=== PATIENT | female | born 1980 | race Caucasian/White ===

== ENCOUNTER 2017-10-14 16:55 | Inpatient (IN) | payer OTHER ==
[2017-10-14 18:00] LABS: BASO # 0.1 K/uL (0.0-0.2); BASO % 0.3 % (0.0-2.0); EOS % 0.1 % (0.0-4.0); HEMOGLOBIN 16.8 g/dL (12.0-16.0); LYMPH # 1.9 K/uL (1.0-4.3); LYMPH % 8.5 % (20.0-40.0); MEAN CELL VOLUME 81.7 fl (81.0-99.0); MEAN CORPUSCULAR HEMOGLOBIN 27.8 pg (27.0-31.0); MEAN CORPUSCULAR HGB CONC 34.1 g/dL (33.0-37.0); MEAN PLATELET VOLUME 8.6 fl (7.2-11.7); MONO # 1.4 K/uL (0.0-0.8); MONO % 6.2 % (0.0-10.0); NEUT # 19.4 K/uL (1.8-7.0); NEUT % 84.9 % (50.0-75.0); PLATELET COUNT 476 K/uL (130-400); RBC 6.04 Mil/uL (3.80-5.20); RED CELL DISTRIBUTION WIDTH 14.2 % (11.5-14.5); WHITE BLOOD COUNT 22.8 K/uL (4.8-10.8)
[2017-10-14 18:05] LABS: ALB/GLOB RATIO 1.1 (1.0-2.1); ALBUMIN 3.1 g/dL (3.5-5.0); CALCIUM 8.3 mg/dL (8.4-10.2)
[2017-10-14 18:08] LABS: INR 1.1 (0.9-1.2); PARTIAL THROMBOPLASTIN TIME 29.9 Seconds (25.6-37.1)
--- NOTE | 2017-10-14 18:17 | ED PDOC ---
HPI: General Adult Time Seen by Provider: 10/14/17 17:13 Chief Complaint (Nursing): Abdominal Pain History Per: Patient Additional Complaint(s): Pt. states for the past 4 days she's had epigastric pain radiating to her chest causing SOB. Also reports feeling nauseous. States pain is worse after eating. States she was seen by David Nascimento yesterday and was found to be . She also had an Abd US which showed perihepatic ascites but no mention of . States today she began today the SOB which occurred when she bent forward and resolved when lying supine. Currently without any symptoms. Pt. states she is currently taking Lovenox 40mg and for IVF treatment. Denies fever , vaginal bleeding, vomiting, chest pain, palpitations, recent prolonged immobilization, hx of DVT or PE, previous abdominal surgeries, leg pain, pelvic pain. Past Medical History Reviewed: Historical Data, Nursing Documentation, Vital Signs Vital Signs: Last Vital Signs Temp 97.8 F 10/18/17 05:10 Pulse 81 10/18/17 05:10 Resp 20 10/18/17 05:10 BP 133/87 10/18/17 05:10 Pulse Ox 98 10/18/17 05:10 - Surgical History Surgical History: No Surg Hx - Family History Family History: States: No Known Family Hx - Home Medications Home Medications: Ambulatory Orders Medication Instructions Recorded Heparin [Heparin (RENAL)] 40 mg SQ DAILY 10/15/17 Levothyroxine [Synthroid] 50 mcg PO DAILY 10/15/17 Non Formulary Medication 2 mg PO DAILY 10/15/17 [Non-Formulary Medication] Progesterone, Micronized [Crinone] 80 mg TOP DAILY 10/15/17 Progesterone, Micronized 10 mg PO BID 10/15/17 [Progesterone] - Allergies Allergies/Adverse Reactions: Allergies Allergy/AdvReac Type Severity Reaction Status Date / Time No Known Allergies Allergy Verified 10/14/17 17:09 Review of Systems ROS Statement: Except As Marked, All Systems Reviewed And Found Negative Respiratory: Positive for: Shortness of Breath Gastrointestinal: Positive for: Nausea, Abdominal Pain Physical Exam - Physical Exam Appears: Positive for: Well, Non-toxic, No Acute Distress Skin: Positive for: Normal Color, Warm. Negative for: Rash Eye Exam: Positive for: Normal appearance. Negative for: Scleral icterus ENT: Positive for: Normal ENT Inspection, Pharynx Is Cardiovascular/Chest: Positive for: Regular Rate, Rhythm. Negative for: Tachycardia Respiratory: Positive for: Normal Breath Sounds. Negative for: Respiratory Distress Gastrointestinal/Abdominal: Positive for: Normal Exam, Soft, Tenderness ( epigastric and RUQ). Negative for: Distended, Asicites Back: Positive for: Normal Inspection. Negative for: L CVA Tenderness, R CVA Tenderness Extremity: Negative for: Calf Tenderness (b/l) Neurologic/Psych: Positive for: Alert, Oriented, Gait (steady, unassisted). Negative for: Aphasia, Facial Droop - Laboratory Results Result Diagrams: 10/18/17 04:20 10/18/17 04:20 Urine POC: Positive - ECG ECG: Positive for: Interpreted By Me ECG Rhythm: Positive for: Sinus Rhythm. Negative for: ST/T Changes Rate: 96 O2 Sat by Pulse Oximetry: 99 - Progress ED Course And Treament: Labs, duplex b/l lower extremity, abd US, pepcid 40mg IV ordered. Pt. placed on traffic monitor specialist. Urine specimen showed sp blood. Tranvaginal US ordered. Case d/w Dr. Martinez who agrees with care. [address] Martinez recommends CTA chest and holding off on ASA as EKG is normal at this time. 1931 Pt. states she had IVF in [place] 8 days ago. States her OBGYN is Dr. Mary Jane Almeida Call placed to Dr. Almeida. 1944 Case d/w Dr. Almeida who knows pt. but has not seen her for this . Agrees with plan of getting CTA chest and abd and states OBGYN admissions coordinator can be consulted if needed. Disposition - Clinical Impression Clinical Impression: Abdominal pain, Ovarian hyperstimulation syndrome, Elevated troponin - Patient ED Disposition Is Patient to be Admitted: Transfer of Care (Signed out to Mert PANIAGUA pending diagnostic results and final disposition.) - Disposition Disposition Time: 20:00 Condition: STABLE
[2017-10-14 18:20] LABS: TROPONIN I 0.288 ng/mL (0.00-0.120)
[2017-10-14 18:25] LABS: SQUAMOUS EPITHIAL 1 /hpf (0-5); URINE BACTERIA RARE (<OCC); URINE BILIRUBIN NEGATIVE (NEGATIVE); URINE BLOOD NEGATIVE (NEGATIVE); URINE CLARITY CLOUDY (Clear); URINE COLOR AMBER (YELLOW); URINE GLUCOSE (UA) NEG (Normal); URINE LEUKOCYTE ESTERASE NEG Leu/uL (Negative); URINE PROTEIN 30 mg/dL (NEGATIVE)
[2017-10-14] MEDS ORDERED: Iodixanol 320 MG/ML 100 ML BOTTLE IV ONE (18:43)
[2017-10-14] MEDS ORDERED: Sodium Chloride 0.9% 50 ML IV ONE (18:43)
[2017-10-14 19:29] LABS: BANDS 4 % (0-2); HYPOCHROMIC SLIGHT; LYMPHOCYTE 10 % (20-50); MICROCYTOSIS SLIGHT; MONOCYTE 5 % (0-10); NEUTROPHIL 81 % (42-75); PLATELET ESTIMATE NORMAL (NORMAL); TOTAL CELLS COUNTED 100
[2017-10-14] MEDS: Lactated Ringer's 1,000 ML IV SCH (20:42)
--- NOTE | 2017-10-14 22:19 | ED PDOC ---
- Laboratory Results Result Diagrams: 10/14/17 17:34 10/14/17 17:34 Urine POC: Positive - ECG O2 Sat by Pulse Oximetry: 99 Medical Decision Making Medical Decision Making: Case endorsed to me from HERVE Wayne at 1999 pending US. HERVE Wayne had discussed the case with patient's boatwright Dr. Oneyda Almeida and he agrees with current management and is comfortable with patient receiving CT if clinically warranted based on her symptoms. VS P 96 O2sat 99%RA. On re-evaluation, patient reports improvement of symptoms when she is laying down, reports of upper abdominal pain when standing and walking, as well as SOB when she stands and walks. She denies any chest pain or SOB at this time. She admits to having ovarian hyperstimulation treatment while in [place] for 10 days 3 weeks ago, she was told that ascities can develop, however this side effect was not fully discussed with her, although it was mentioned in her discharge papers. She states on 10/01/17 she had the retrieval and transfer of fertilized eggs, on 10/06/17 she returned from [place]. Her symptoms then started on 10/11/17 with mild upper abdominal pain, which became constant and gradually worsened with SOB when walking, but denied chest pain. On exam, patient remains AAOx3, she is smiling, in no acute painful or respiratory distress. Lungs clear to auscultation, cardiac RRR, abdomen soft, not distended, dull to percussion, + upper abdominal tenderness. Lab results reviewed with the patient : trop (+), wbc 22, creat 1.3, beta quant 71, coags wnl. US abd : FINDINGS: Liver: Normal appearance of the hepatic parenchyma. Normal hepatic contour. No evidence mass or fatty infiltration. There is hepatopetal portal venous flow. No intrahepatic bile duct dilation. Gallbladder: Normal gallbladder wall thickness of 3 mm. The gallbladder is normal in size. No gallstones, sludge, or pericholecystic fluid. Common bile duct: The common bile duct measures 7 mm in diameter. No evident stones. Pancreas: Not well-seen obscured by overlying bowel. Kidneys: There is a small amount of perihepatic and perisplenic fluid. The right kidney is normal in size and echotexture without stone or hydronephrosis measuring 10.1 cm in length. The left kidney is normal in size and echotexture, without stone or hydronephrosis, measuring 9.7 cm in length. Spleen: The spleen is normal in size and echotexture with length of 8.3 cm. Aorta: Normal as visualized. Inferior vena cava: Normal as visualized. Free fluid: Moderate fluid within the right lower quadrant. IMPRESSION: 1. Moderate to large abdominal ascites. While this is indeterminate in etiology , this could be related to the possibility of ovarian hyperstimulation syndrome suggested on the comparison pelvic ultrasound. Recommend correlation with clinical and laboratory parameters, to include beta hCG levels, especially if there is concern for ectopic . 2. Common bile duct is just above the upper limit of normal diameter. If there is concern for an obstructive process, consider followup imaging in the nonemergent setting. 3. No cholelithiasis or sonographic evidence of acute cholecystitis. Dictated and Authenticated by: Terrence Brantley DO 10/14/2017 8:48 PM Eastern Time ([place] & [place]) US TV : FINDINGS: Gestation: No intrauterine . Placenta/amniotic fluid: Not present. Uterus/cervix: The uterus measures 7.5 cm x 5.7 cm x 5.0 cm. The endometrium is homogeneous measuring 1.7 cm in thickness. No myometrial mass. Ovaries: The left ovary measures 5.8 cm x 4.2 cm x 4.2 cm, corresponding to a volume of 54.2 mL. Several small follicles are present within the left ovary. The right ovary measures 4.9 cm x 4.2 cm x 4.2 cm, corresponding to a volume of 45.9 mL. Multiple follicles are present within the right ovary. Normal color Doppler flow and spectral Doppler waveform within each ovary. No torsion. No evident mass. Free fluid: Moderate free fluid throughout the pelvis. IMPRESSION: 1. No intrauterine . Recommend close clinical surveillance and correlation with beta hCG levels. 2. Bilateral ovarian enlargement, with the ovaries containing multiple follicles. Moderate free fluid within the pelvis. This constellation of findings suggests the possibility of ovarian hyperstimulation syndrome. Dictated and Authenticated by: Terrence Brantley DO 10/14/2017 8:41 PM Eastern Time (US & [place]) 2100 US results d/w the radiologist Dr. Brantley, who confirms that the ascities is likely due to ovarian hyperstimulation syndrome given the clinical history. Radiologist states that the patient can even develop pleural effusion and pericardial effusion, he states that the portal vein is visualized with no clot. 2114 US results d/w Dr. Thomas, given that the patient on initial presentation was tachycardic and had recent travel, CT of chest ordered to rule out PE and also to evaluate the heart and lungs for any fluids. CT is medically necessary given the clinical scenario and the need to rule out PE. US results d/w the patient in great detail. Plan for CT d/w the patient, which she feels comfortable with and agrees to. Repeat trop and lactic acid ordered. CTA chest : FINDINGS: Pulmonary arteries: No filling defects within the central, segmental, or visualized subsegmental pulmonary arteries. Aorta: No acute findings. No thoracic aortic aneurysm. Lungs: No focal consolidation. No suspicious pulmonary nodule. Pleural space: No pleural effusion. No pneumothorax or pleural thickening. Heart: Normal cardiac chamber size. No pericardial effusion. No evidence of RV dysfunction. Bones/joints: The osseous structures are normal for age. No acute osseous abnormality. No dislocation. Soft tissues: Normal. Lymph nodes: Normal. No enlarged lymph nodes. Intraperitoneal space: There is a moderate to large amount of upper abdominal ascites. IMPRESSION: 1. No pulmonary embolism. 2. No pleural effusion or pericardial effusion. 2. No acute cardiopulmonary abnormality. 4. Moderate to large volume abdominal ascites, as seen on the comparison abdominal ultrasound. Dictated and Authenticated by: Terrence Brantley DO 10/14/2017 10:30 PM Eastern Time (US & [place]) CT A/P w/ IV contrast: FINDINGS: Lung bases: The visualized portions of the lung bases are normal. Liver: The liver is normal in appearance. Gallbladder and bile ducts: The gallbladder is normal. No calcified stones. No ductal dilation. Pancreas: The pancreas is normal. No ductal dilation. Spleen: The spleen is normal. Adrenals: The adrenal glands are normal. Kidneys and ureters: The kidneys are normal. Normal appearance of the imaged ureters. No hydronephrosis. Stomach and bowel: Normal appearance of the imaged volume large bowel. No bowel dilation. No mucosal thickening. Appendix: The appendix is not visualized and is likely below the imaged field-of -view. Intraperitoneal space: Moderate to large volume ascites. No free air. Bones/joints: Normal appearance of the osseous structures. No acute fracture. No dislocation. Soft tissues: Normal. Vasculature: The portal and hepatic veins appear patent. Patent splenic and superior mesenteric veins. Lymph nodes: Normal. No enlarged lymph nodes. IMPRESSION: 1. The portal, splenic, and imaged the superior mesenteric veins appear patent. 2. Moderate to large volume ascites as seen on comparison exams. 3. No other acute abdominal abnormality. Dictated and Authenticated by: Terrence Brantley DO 10/14/2017 11:02 PM Eastern Time (US & [place]) CT results d/w the patient. Based on history, exam and diagnostic results, plan will be for inpatient observation. Case d/w INFORMATION TECHNOLOGY SECURITY MANAGER David Nascimento, agrees to inpatient observation to [facility] for chest pain , SOB, elevated troponin. Request cardio consult with Dr. Oneyda Quezada and echo in the AM. Bridge orders, consult and echo ordered. Disposition Counseled Patient/Family Regarding: Studies Performed, Diagnosis - Clinical Impression Clinical Impression: Abdominal pain, Ovarian hyperstimulation syndrome, Elevated troponin - POA Present On Arrival: None - Disposition Disposition: Hospitalized as Observation Patient Disposition Time: 22:45 Condition: STABLE - PA / INFORMATION TECHNOLOGY SECURITY MANAGER / Resident Statement YULIA has reviewed & agrees with the documentation as recorded.
[2017-10-15] MEDS: Lactated Ringer's 1,000 ML IV SCH ×3 (00:22→10:11)
[2017-10-15 05:21] LABS: BASO # 0.1 K/uL (0.0-0.2); BASO % 0.4 % (0.0-2.0); EOS % 0.1 % (0.0-4.0); HEMOGLOBIN 16.5 g/dL (12.0-16.0); LYMPH # 3.3 K/uL (1.0-4.3); LYMPH % 16.3 % (20.0-40.0); MEAN CELL VOLUME 84.1 fl (81.0-99.0); MEAN CORPUSCULAR HEMOGLOBIN 27.7 pg (27.0-31.0); MEAN CORPUSCULAR HGB CONC 32.9 g/dL (33.0-37.0); MEAN PLATELET VOLUME 8.4 fl (7.2-11.7); MONO # 1.8 K/uL (0.0-0.8); MONO % 9.2 % (0.0-10.0); NEUT # 14.8 K/uL (1.8-7.0); RBC 5.97 Mil/uL (3.80-5.20); RED CELL DISTRIBUTION WIDTH 14.7 % (11.5-14.5)
[2017-10-15 07:30] LABS: ALB/GLOB RATIO 1.1 (1.0-2.1); ALBUMIN 2.8 g/dL (3.5-5.0); ALT/SGPT 42 U/L (9-52); AST/SGOT 30 U/L (14-36); BLOOD UREA NITROGEN 32 mg/dl (7-17); GFR AFRICAN-AMERICAN > 60; GFR NON-AFRICAN AMERICAN > 60
[2017-10-15 07:32] LABS: CK-MB 0.93 ng/mL (0.0-3.38)
--- NOTE | 2017-10-15 09:44 | CT ---
Date of service: 10/14/2017 PROCEDURE: CT Chest with contrast (Pulmonary Angiogram) HISTORY: SOB, elevated troponin COMPARISON: No prior chest CT available for comparison. Limited correlation is made with prior abdomen ultrasound examination 10/14/2017. TECHNIQUE: Axial computed tomography images were obtained of the chest in the pulmonary arterial phase of enhancement. Coronal and sagittal reformatted images were created and reviewed. Intravenous contrast dose: Visipaque 320, 90 cc. Radiation dose: Total exam DLP = 417.94 mGy-cm. This CT exam was performed using one or more of the following dose reduction techniques: Automated exposure control, adjustment of the mA and/or kV according to patient size, and/or use of iterative reconstruction technique. FINDINGS: PULMONARY ARTERIES: Unremarkable. No pulmonary embolism. AORTA: No acute findings. No thoracic aortic aneurysm. LUNGS: Unremarkable. No nodule, mass or pulmonary consolidation. PLEURAL SPACES: Trace bilateral pleural effusions identified. No pericardial effusion. HEART: Normal cardiac size. LYMPH NODES: No lymphadenopathy. BONES, CHEST WALL: Unremarkable. No fracture or destructive lesion OTHER FINDINGS: Upper abdominal ascites. IMPRESSION: 1. No CT evidence pulmonary embolus. 2. No infiltrate or significant lymphadenopathy. Trace bilateral pleural effusions are identified which are nonspecific. 3. Upper abdominal ascites appreciated. Please see separate subsequent abdomen pelvis CT examination 10/14/2017.
--- NOTE | 2017-10-15 10:12 | CT ---
Date of service: 10/14/2017 PROCEDURE: CT Abdomen with intravenous contrast HISTORY: attention portal vein COMPARISON: Upper abdomen sections from chest CT 10/14/2017. Abdomen ultrasound 10/16/2017 as well. TECHNIQUE: Axial images of the abdomen from lung bases to iliac crest following intravenous contrast administration. Coronal and sagittal reformats generated. Oral contrast was not administered as well as imaging through the pelvis as per referring physician request. The patient is and this examination was deemed medically necessary by the referring physician. Intravenous contrast Dose: No added contrast given. See chest CT Angio 10/14/2017. Radiation dose: Total exam DLP = 215.33 mGy-cm. This CT exam was performed using one or more of the following dose reduction techniques: Automated exposure control, adjustment of the mA and/or kV according to patient size, and/or use of iterative reconstruction technique. FINDINGS: LOWER THORAX: Trace bilateral pleural effusions are identified. LIVER: No hepatic mass or intrahepatic biliary dilatation is identified. Portal and hepatic venous enhancement is unremarkable. GALLBLADDER AND BILE DUCTS: Gallbladder is distended. No radiodense cholelithiasis is associated. Gallbladder wall thickness is upper limits normal at 2.5 mm and the pattern may reflect subtle hydropic changes related to ascites. Common bile duct appears to measure 5.1 mm. No choledocholithiasis grossly evident. PANCREAS: Unremarkable. No gross lesion or ductal dilatation. SPLEEN: Unremarkable. ADRENALS: Unremarkable. No mass. KIDNEYS AND URETERS: Unremarkable. No hydronephrosis. No solid mass. VASCULATURE: Unremarkable. No aortic aneurysm. BOWEL: The lack of oral contrast administration limits evaluation of the gastrointestinal tract. The gastric antrum is mildly distended by retained air and appears unremarkable. The remainder of the stomach is collapsed and poorly evaluated. Visualize large small bowel loops are largely collapsed and grossly nonfocal appearing though limited evaluation. APPENDIX: Not included in this examination. PERITONEUM: Moderate abdominal ascites appreciated throughout the visualized abdomen. No free intraperitoneal gas or definite suspicious mesenteric enhancement. LYMPH NODES: Unremarkable. No enlarged lymph nodes. Unremarkable. BONES: No acute fracture. OTHER FINDINGS: None. IMPRESSION: 1. Nonspecific moderate abdominal ascites. The patient is and separate pelvic ultrasound indicates possibility of ovarian hyperstimulation syndrome which may be the etiology. Clinical follow-up is advised. 2. No bowel obstruction, free intra peritoneal gas or prominent lymphadenopathy in the visualized abdomen. Note, pelvic bowel loops are not included this examination. Discordant pulmonary report from [facility] 10/14/2017.
--- NOTE | 2017-10-15 11:18 | US ---
Date of service: 10/14/2017 HISTORY: epigastric pain COMPARISON: None. TECHNIQUE: Sonographic evaluation of the abdomen. FINDINGS: LIVER: Measures 15.0 cm. Normal echogenicity of the liver parenchyma. No mass. No intrahepatic bile duct dilatation. GALLBLADDER: Unremarkable. No gallstones. COMMON BILE DUCT: Measures 6.7 mm. No stones. No dilatation. PANCREAS: Obscured by overlying bowel gas. Non diagnostic assessment of the pancreas RIGHT KIDNEY: Measures 4.1 x 10.1cm. Normal echogenicity. No calculus, mass, or hydronephrosis. LEFT KIDNEY: Measures 4.8 x 9.7cm. Normal echogenicity. No calculus, mass, or hydronephrosis. SPLEEN: Normal in size and contour. No mass. AORTA: No aneurysmal dilatation. IVC: Unremarkable. OTHER FINDINGS: Incompletely visualized intra-abdominal ascites. IMPRESSION: No significant/acute findings with respect to hepatobiliary system and associated organs. Intra-abdominal ascites is incompletely visualized. Concordant results (preliminary interpretation) provided by [facility]. Procedure Completed: 18:34 Preliminary ([facility]) Report: Dictated and Authenticated: 20:45. Final Interpretation: 11:16. October 15, 2017.
--- NOTE | 2017-10-15 11:20 | US ---
Date of service: 10/14/2017 PROCEDURE: Bilateral lower extremity venous duplex Doppler. HISTORY: SOB, epigastric pain COMPARISON: None available. TECHNIQUE: Bilateral common femoral, superficial femoral, popliteal and posterior tibial veins were evaluated. Flow was assessed with color Doppler, compressibility, assessment of phasic flow and augmentation response. FINDINGS: COMMON FEMORAL VEIN: Right CFV: Unremarkable. Left CFV: Unremarkable. SUPERFICIAL FEMORAL VEIN: Right SFV: Unremarkable. Left SFV: Unremarkable. POPLITEAL VEIN: Right Popliteal: Unremarkable. Left Popliteal: Unremarkable. POSTERIOR TIBIAL VEIN: Right PTV: Unremarkable. Left PTV: Unremarkable. OTHER FINDINGS: None. IMPRESSION: No evidence of deep venous thrombosis. Concordant results (preliminary interpretation) provided by [facility]. Procedure Completed: 19:05. Preliminary ([facility]) Report: Dictated and Authenticated: 20:49. Final Interpretation: 11:18. October 15, 2017.
--- NOTE | 2017-10-15 12:15 | US ---
Date of service: 10/14/2017 HISTORY: vaginal bleeding COMPARISON: None available. TECHNIQUE: Transvaginal only. Real -time technique with 2D, duplex and color Doppler FINDINGS: UTERUS: Measures 5.7 x 5 x 7.5 cm. Normal in size and appearance. No fibroid or other mass lesion seen. ENDOMETRIUM: Measures 16.7 mm in diameter. Unremarkable. No visible products of conception CERVIX: No cervical abnormality identified. RIGHT OVARY: Measures 4.5 x 3.9 x 4.6 cm. No solid mass. Normal flow. Septated cyst 3.5 x 1.7 x 2.2 cm Multiple subcentimeter follicles. LEFT OVARY: Measures 4.2 x 5.8 x 4.2 cm. No solid mass. Normal flow. Multiple subcentimeter follicles. FREE FLUID: No significant free fluid noted. OTHER FINDINGS: Incompletely visualize pelvic ascites. IMPRESSION: No visible intrauterine gestation or products of conception. No visible ectopic gestation. Bilateral follicles and dominant cyst right ovary. Large volume pelvic ascites incompletely visualized. Concordant results (preliminary interpretation) provided by [facility]. Procedure Completed: 19:35 Preliminary ([facility]) Report: Dictated and Authenticated: 20:41 Final Interpretation: 12:13. October 15, 2017.
[2017-10-15] MEDS ORDERED: Albumin Human 25% (12.5 gm/50 ml) IV ONE (17:23)
[2017-10-15] MEDS: Sodium Chloride 0.9% 1,000 ML IV SCH (17:53)
--- NOTE | 2017-10-15 18:56 | CP.PCM.CON ---
History of Present Illness - History of Present Illness History of Present Illness: The patient is a 36-year-old 1 para 0 the patient is currently undergoing infertility treatment. Patient had egg retreival on October 01, on October 06 patient had 2 embryos transferred. The patient reports having the procedure done in [place]. Patient presents today complaining of abdominal distention times several days duration lower abdominal discomfort. Patient denies any vaginal bleeding shortness of breath or palpitations Review of Systems - Cardiovascular Cardiovascular: As Per HPI - Respiratory Respiratory: As Per HPI - Gastrointestinal Gastrointestinal: As Per HPI - Genitourinary Genitourinary: As Per HPI - Reproductive: Female Reproductive:Female: As Per HPI - Menstruation Menstruation: As Per HPI Past Patient History - Past Medical History & Family History Past Medical History?: No - Past Social History Smoking Status: Never Smoked - CARDIAC Hx Cardiac Disorders: No - PULMONARY Hx Respiratory Disorders: No - NEUROLOGICAL Hx Neurological Disorder: No - HEENT Hx HEENT Problems: No - RENAL Hx Chronic Kidney Disease: No - ENDOCRINE/METABOLIC Hx Endocrine Disorders: No - HEMATOLOGICAL/ONCOLOGICAL Hx Blood Disorders: No Hx AIDS: No Hx Human Immunodeficiency Virus (HIV): No - INTEGUMENTARY Hx Dermatological Problems: No - MUSCULOSKELETAL/RHEUMATOLOGICAL Hx Musculoskeletal Disorders: No Hx Falls: No - GASTROINTESTINAL Hx Gastrointestinal Disorders: No - GENITOURINARY/GYNECOLOGICAL Hx Genitourinary Disorders: No - PSYCHIATRIC Hx Psychophysiologic Disorder: No Hx Substance Use: No - SURGICAL HISTORY Hx Surgeries: No - ANESTHESIA Hx Anesthesia: No Hx Anesthesia Reactions: No Hx Malignant Hyperthermia: No Has any member of the family had a problem w/ anesthesia?: No Meds Allergies/Adverse Reactions: Allergies Allergy/AdvReac Type Severity Reaction Status Date / Time No Known Allergies Allergy Verified 10/14/17 17:09 - Medications Medications: Current Medications Acetaminophen (Tylenol 325mg Tab) 650 mg PO Q4 PRN PRN Reason: Pain, moderate (4-7) Stop: 10/16/17 10:00 Last Admin: 10/15/17 15:57 Dose: 650 mg Enoxaparin Sodium (Lovenox) 40 mg SC DAILY [facility] PRN Reason: Protocol Famotidine (Pepcid) 20 mg IVP Q12 [facility] Last Admin: 10/15/17 09:35 Dose: 20 mg Lactated Ringer's (Lactated Ringer's) 1,000 mls @ 100 mls/hr IV .Q10H [facility] Last Admin: 10/15/17 10:11 Dose: 100 mls/hr Sodium Chloride (Sodium Chloride 0.9%) 1,000 mls @ 100 mls/hr IV .Q10H [facility] Stop: 10/16/17 17:21 Last Admin: 10/15/17 17:53 Dose: 100 mls/hr Morphine Sulfate (Morphine) 2 mg IVP Q4 PRN PRN Reason: Pain, severe (8-10) Last Admin: 10/15/17 17:52 Dose: 2 mg Ondansetron HCl (Zofran Inj) 4 mg IVP Q6 PRN PRN Reason: Nausea/Vomiting Last Admin: 10/15/17 16:56 Dose: 4 mg Physical Exam - Neck Exam Neck exam: Positive for: Normal Inspection - Respiratory Exam Respiratory Exam: NORMAL BREATHING PATTERN - Cardiovascular Exam Cardiovascular Exam: REGULAR RHYTHM - GI/Abdominal Exam Additional comments: mild abdominal distension guarding with deep palpation - Psychiatric Exam Psychiatric exam: Normal Affect - Skin Skin Exam: Normal Color Results - Vital Signs Recent Vital Signs: Last Vital Signs Temp 97.9 F 10/15/17 16:22 Pulse 78 10/15/17 16:22 Resp 20 10/15/17 16:22 BP 128/83 10/15/17 16:22 Pulse Ox 99 10/15/17 16:22 - Labs Result Diagrams: 10/15/17 05:01 10/15/17 07:00 Labs: Laboratory Results - last 24 hr 10/14/17 10/14/17 10/14/17 17:34 18:05 18:59 WBC RBC Hgb Hct MCV MCH MCHC RDW Plt Count MPV Neut % (Auto) Lymph % (Auto) [place] % (Auto) Eos % (Auto) Baso % (Auto) Neut # (Auto) Lymph # (Auto) [place] # (Auto) Eos # (Auto) Baso # (Auto) Neutrophils % (Manual) 81 H Band Neutrophils % 4 H Lymphocytes % (Manual) 10 L Monocytes % (Manual) 5 Platelet Estimate Normal Hypochromasia (manual) Slight Microcytosis (manual) Slight Sodium Potassium Chloride Carbon Dioxide Anion Gap BUN Creatinine Est GFR ( Amer) Est GFR (Non-Af Amer) Random Glucose Lactic Acid Calcium Total Bilirubin AST ALT Alkaline Phosphatase CK-MB (Mass) Troponin I NT-Pro-B Natriuret Pep 70.2 Total Protein Albumin Globulin Albumin/Globulin Ratio Blood Type O POSITIVE Antibody Screen Negative 10/14/17 10/14/17 10/15/17 22:52 22:52 05:01 WBC 20.0 H RBC 5.97 H Hgb 16.5 H Hct 50.2 H MCV 84.1 D MCH 27.7 MCHC 32.9 L RDW 14.7 H Plt Count 440 H MPV 8.4 Neut % (Auto) 74.0 Lymph % (Auto) 16.3 L [place] % (Auto) 9.2 Eos % (Auto) 0.1 Baso % (Auto) 0.4 Neut # (Auto) 14.8 H Lymph # (Auto) 3.3 [place] # (Auto) 1.8 H Eos # (Auto) 0.0 Baso # (Auto) 0.1 Neutrophils % (Manual) Band Neutrophils % Lymphocytes % (Manual) Monocytes % (Manual) Platelet Estimate Hypochromasia (manual) Microcytosis (manual) Sodium Potassium Chloride Carbon Dioxide Anion Gap BUN Creatinine Est GFR ( Amer) Est GFR (Non-Af Amer) Random Glucose Lactic Acid 1.5 Calcium Total Bilirubin AST ALT Alkaline Phosphatase CK-MB (Mass) Troponin I 0.2520 H* NT-Pro-B Natriuret Pep Total Protein Albumin Globulin Albumin/Globulin Ratio Blood Type Antibody Screen 10/15/17 07:00 WBC RBC Hgb Hct MCV MCH MCHC RDW Plt Count MPV Neut % (Auto) Lymph % (Auto) [place] % (Auto) Eos % (Auto) Baso % (Auto) Neut # (Auto) Lymph # (Auto) [place] # (Auto) Eos # (Auto) Baso # (Auto) Neutrophils % (Manual) Band Neutrophils % Lymphocytes % (Manual) Monocytes % (Manual) Platelet Estimate Hypochromasia (manual) Microcytosis (manual) Sodium 128 L Potassium 4.8 Chloride 102 Carbon Dioxide 17 L Anion Gap 14 BUN 32 H Creatinine 1.0 Est GFR ( Amer) > 60 Est GFR (Non-Af Amer) > 60 Random Glucose 98 Lactic Acid Calcium 8.0 L Total Bilirubin 0.9 AST 30 ALT 42 Alkaline Phosphatase 31 L D CK-MB (Mass) 0.93 Troponin I 0.1370 H* NT-Pro-B Natriuret Pep Total Protein 5.3 L Albumin 2.8 L Globulin 2.6 Albumin/Globulin Ratio 1.1 Blood Type Antibody Screen Assessment & Plan - Assessment and Plan (Free Text) Assessment: Ovarian hyperstimulation syndrome Monitor CBC complete metabolic panel and electrolytes IV fluid normal saline salt poor albumin Lovenox 40 mg daily Interventional radiology consult to drain ascites if needed
[2017-10-16] MEDS: Sodium Chloride 0.9% 1,000 ML IV SCH ×2 (04:34→15:00)
[2017-10-16 07:28] LABS: BASO % 0.3 % (0.0-2.0); EOS % 0.2 % (0.0-4.0); HEMOGLOBIN 14.2 g/dL (12.0-16.0); LYMPH # 2.6 K/uL (1.0-4.3); LYMPH % 18.7 % (20.0-40.0); MEAN CELL VOLUME 82.9 fl (81.0-99.0); MEAN CORPUSCULAR HEMOGLOBIN 27.6 pg (27.0-31.0); MEAN CORPUSCULAR HGB CONC 33.3 g/dL (33.0-37.0); MEAN PLATELET VOLUME 8.5 fl (7.2-11.7); MONO # 1.7 K/uL (0.0-0.8); MONO % 12.3 % (0.0-10.0); NEUT # 9.6 K/uL (1.8-7.0); NEUT % 68.5 % (50.0-75.0); RBC 5.14 Mil/uL (3.80-5.20); RED CELL DISTRIBUTION WIDTH 14.8 % (11.5-14.5); WHITE BLOOD COUNT 14.1 K/uL (4.8-10.8)
[2017-10-16 08:15] LABS: ALB/GLOB RATIO 1.1 (1.0-2.1); ALBUMIN 2.5 g/dL (3.5-5.0); ALT/SGPT 66 U/L (9-52); AST/SGOT 59 U/L (14-36); BLOOD UREA NITROGEN 28 mg/dl (7-17); CALCIUM 7.7 mg/dL (8.4-10.2); GFR AFRICAN-AMERICAN > 60; GFR NON-AFRICAN AMERICAN > 60
[2017-10-16] MEDS: Enoxaparin 40 mg Syringe SC SCH ×3 (09:07→21:16)
--- NOTE | 2017-10-16 10:06 | CP.PCM.CON ---
History of Present Illness - History of Present Illness History of Present Illness: I was asked to see patient by Dr Madison and Dr Nascimento Patient is a 36 year old female who is s/p IVF treatment and recent who presents with abdominal pain and distension. The patient developed dyspnea associated with her abdominal pain. The patient had a mildly elevated troponin. She denies chest pain. Review of Systems - Constitutional Constitutional: absent: As Per HPI, Anorexia, Chills, Daytime Sleepiness, Excessive Sweating, Fatigue, Fever, Frequent Falls, Headache, Increased Appetite , Lethargy, Malaise, Night Sweats, Snoring, Sleep Apnea, Weight Gain, Weight Loss, Weakness, Other - EENT Eyes: absent: As Per HPI, Blind Spots, Blurred Vision, Change in Vision, Decreased Night Vision, Diplopia, Discharge, Dry Eye, Exophthalmos, Floaters, Irritation, Itchy Eyes, Loss of Peripheral Vision, Pain, Photophobia, Requires Corrective Lenses, Sees Flashes, Spots in Vision, Tunnel Vision, Other Visual Disturbances, Loss of Vision, Other Ears: absent: As Per HPI, Decreased Hearing, Ear Discharge, Ear Pain, Tinnitus, Abnormal Hearing, Disequilibrium, Dizziness, Other Nose/Mouth/Throat: absent: As Per HPI, Epistaxis, Nasal Congestion, Nasal Discharge, Nasal Obstruction, Nasal Trauma, Nose Pain, Post Nasal Drip, Sinus Pain, Sinus Pressure, Bleeding Gums, Change in Voice, Dental Pain, Dry Mouth, Dysphagia, Halitosis, Hoarsness, Lip Swelling, Mouth Lesions, Mouth Pain, Odynophagia, Sore Throat, Throat Swelling, Tongue Swelling, Facial Pain, Neck Pain, Neck Mass, Other - Breasts Breasts: absent: As Per HPI, Change in Shape, Mass, Pain, Nipple Discharge, Nipple Inversion, Skin Changes, Swelling, Other - Cardiovascular Cardiovascular: Dyspnea - Respiratory Respiratory: Dyspnea - Gastrointestinal Gastrointestinal: Abdominal Pain - Genitourinary Genitourinary: absent: As Per HPI, Change in Urinary Stream, Difficulty Urinating, Dysuria, Flank Pain, Hematuria, Pyuria, Nocturia, Urinary Incontinence, Urinary Frequency, Urinary Hesitance, Urinary Urgency, Voiding Freq/Small Amts, Freq UTI, Hx Renal/Bladder Calculi, Hx /Renal Surgery, Bladder Distension, Other - Musculoskeletal Musculoskeletal: absent: As Per HPI, Abnormal Gait, Arthralgias, Atrophy, Back Pain, Deformity, Joint Swelling, Limited Range of Motion, Loss of Height, Muscle Cramps, Muscle Weakness, Myalgias, Neck Pain, Numbness, Radiating Pain into Limb, Stiffness, Tingling, Other - Integumentary Integumentary: absent: As Per HPI, Acne, Alopecia, Bleeding Lesions, Change in Hair, Change in Nails, Change in Pigmentation, Changing Lesions, Dry Skin, Erythema, Furuncle, Hirsutism, Lesions, New Lesions, Non-Healing Lesions, Photosensitivity, Pruritus, Rash, Skin Pain, Skin Ulcer, Sores, Striae, Swelling , Unusual Bruising, Wounds, Jaundice, Other - Neurological Neurological: absent: As Per HPI, Abnormal Gait, Abnormal Hearing, Abnormal Movements, Abnormal Speech, Behavioral Changes, Burning Sensations, Confusion, Convulsions, Disequilibrium, Dizziness, Numbness, Focal Weakness, Frequent Falls , Headaches, Lack of Coordination, Loss of Vision, Memory Loss, Paresthesias, Radicular Pain, Restless Legs, Sensory Deficit, Syncope, Tingling, Tremor, Vertigo, Weakness, Other Visual Disturbances, Other - Psychiatric Psychiatric: absent: As Per HPI, Abnormal Sleep Pattern, Anhedonia, Anxiety, Auditory Hallucinations, Behavioral Changes, Change in Appetite, Change in Libido, Confusion, Depression, Difficulty Concentrating, Hallucinations, Homicidal Ideation, Hopelessness, Irritability, Memory Loss, Mood Swings, Panic Attacks, Paranoia, Suicidal Ideation, Visual Hallucinations, Tactile Hallucinations, Other - Endocrine Endocrine: absent: As Per HPI, Change in Body Appearance, Change in Libido, Cold Intolorance, Deepening of Voice, Excessive Sweating, Fatigue, Flushing, Heat Intolorance, Increase in Ring/Shoe/Hat Size, Palpitations, Polydipsia, Polyphagia, Polyuria, Other - Hematologic/Lymphatic Hematologic: absent: As Per HPI, Easy Bleeding, Easy Bruising, Lymphadenopathy, Other Past Patient History - Past Medical History & Family History Past Medical History?: No - Past Social History Smoking Status: Never Smoked - CARDIAC Hx Cardiac Disorders: No - PULMONARY Hx Respiratory Disorders: No - NEUROLOGICAL Hx Neurological Disorder: No - HEENT Hx HEENT Problems: No - RENAL Hx Chronic Kidney Disease: No - ENDOCRINE/METABOLIC Hx Endocrine Disorders: No - HEMATOLOGICAL/ONCOLOGICAL Hx Blood Disorders: No Hx AIDS: No Hx Human Immunodeficiency Virus (HIV): No - INTEGUMENTARY Hx Dermatological Problems: No - MUSCULOSKELETAL/RHEUMATOLOGICAL Hx Musculoskeletal Disorders: No Hx Falls: No - GASTROINTESTINAL Hx Gastrointestinal Disorders: No - GENITOURINARY/GYNECOLOGICAL Hx Genitourinary Disorders: No - PSYCHIATRIC Hx Psychophysiologic Disorder: No Hx Substance Use: No - SURGICAL HISTORY Hx Surgeries: No - ANESTHESIA Hx Anesthesia: No Hx Anesthesia Reactions: No Hx Malignant Hyperthermia: No Has any member of the family had a problem w/ anesthesia?: No Meds Allergies/Adverse Reactions: Allergies Allergy/AdvReac Type Severity Reaction Status Date / Time No Known Allergies Allergy Verified 10/14/17 17:09 - Medications Medications: Current Medications Enoxaparin Sodium (Lovenox) 40 mg SC DAILY [facility] PRN Reason: Protocol Last Admin: 10/16/17 09:21 Dose: Not Given Famotidine (Pepcid) 20 mg IVP Q12 [facility] Last Admin: 10/16/17 09:07 Dose: 20 mg Lactated Ringer's (Lactated Ringer's) 1,000 mls @ 100 mls/hr IV .Q10H [facility] Last Admin: 10/15/17 10:11 Dose: 100 mls/hr Sodium Chloride (Sodium Chloride 0.9%) 1,000 mls @ 100 mls/hr IV .Q10H [facility] Stop: 10/16/17 17:21 Last Admin: 10/16/17 04:34 Dose: 100 mls/hr Morphine Sulfate (Morphine) 2 mg IVP Q4 PRN PRN Reason: Pain, severe (8-10) Last Admin: 10/15/17 17:52 Dose: 2 mg Ondansetron HCl (Zofran Inj) 4 mg IVP Q6 PRN PRN Reason: Nausea/Vomiting Last Admin: 10/15/17 16:56 Dose: 4 mg Physical Exam - Constitutional Appears: Non-toxic - Head Exam Head Exam: NORMAL INSPECTION - Eye Exam Eye Exam: Normal appearance - ENT Exam ENT Exam: Mucous Membranes Moist - Neck Exam Neck exam: Positive for: Normal Inspection - Respiratory Exam Respiratory Exam: NORMAL BREATHING PATTERN - Cardiovascular Exam Cardiovascular Exam: REGULAR RHYTHM - GI/Abdominal Exam GI & Abdominal Exam: Normal Bowel Sounds - Rectal Exam Rectal Exam: Deferred - Extremities Exam Extremities exam: Negative for: pedal edema - Back Exam Back exam: NORMAL INSPECTION - Neurological Exam Neurological exam: Alert, Oriented x3 - Psychiatric Exam Psychiatric exam: Normal Affect - Skin Skin Exam: Normal Color Results - Vital Signs Recent Vital Signs: Last Vital Signs Temp 97.6 F 10/16/17 08:08 Pulse 75 10/16/17 08:08 Resp 18 10/16/17 08:08 BP 132/89 10/16/17 08:08 Pulse Ox 100 10/16/17 08:08 - Labs Result Diagrams: 10/16/17 06:00 10/16/17 06:00 Labs: Laboratory Results - last 24 hr 10/16/17 10/16/17 06:00 06:00 WBC 14.1 H RBC 5.14 Hgb 14.2 D Hct 42.7 MCV 82.9 MCH 27.6 MCHC 33.3 RDW 14.8 H Plt Count 383 MPV 8.5 Neut % (Auto) 68.5 Lymph % (Auto) 18.7 L [place] % (Auto) 12.3 H Eos % (Auto) 0.2 Baso % (Auto) 0.3 Neut # (Auto) 9.6 H Lymph # (Auto) 2.6 [place] # (Auto) 1.7 H Eos # (Auto) 0.0 Baso # (Auto) 0.0 Sodium 130 L Potassium 4.4 Chloride 101 Carbon Dioxide 21 L Anion Gap 12 BUN 28 H Creatinine 0.9 Est GFR ( Amer) > 60 Est GFR (Non-Af Amer) > 60 Random Glucose 84 Calcium 7.7 L Total Bilirubin 1.0 AST 59 H D ALT 66 H D Alkaline Phosphatase 33 L Total Protein 4.9 L Albumin 2.5 L Globulin 2.4 Albumin/Globulin Ratio 1.1 - EKG Data EKG Interpreted by: Myself Assessment & Plan (1) Elevated troponin Assessment and Plan: echocardiogram reveals normal left ventricular function, mitral valve prolpase, no preicardial effusion. Patient likely does not have acute coronary syndrome. Toponin not indicative of CAD. Status: Acute
--- NOTE | 2017-10-16 10:48 | CP.PCM.CON ---
Addendum entered and electronically signed by Nicole Huffman MD 10/16/17 10:55: A/PL 26 y/o F currently only IVF treatment. Will resume Euthyrox 50mcg, lovenox , progesterone 8% vag cream, progesterone 10mg PO. Will dc estrogen. Original Note: <Nicole Huffman - Last Filed: 10/16/17 10:53> History of Present Illness - History of Present Illness History of Present Illness: 36 y/o F was seen and examined this AM. 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 Current medication includes euthyrox 50mcg, heparin .4mg QD, estrogen 2mg, progesterone 8% vaginal cream & progesterone 10mg PO. She was admitted for abdominal pain, which she stated was sharp. Pain has since subsided to 4-5/10. OBGYNhx: miscarriage- 2012 at 6 weeks, no hx of STI Review of Systems - Review of Systems All systems: reviewed and no additional remarkable complaints except - Gastrointestinal Gastrointestinal: Abdominal Pain - Menstruation Menstruation: Other (cycle currently varying with IVF treatment) Past Patient History - Infectious Disease Hx of Infectious Diseases: None - Past Medical History & Family History Past Medical History?: No Past Family History: Reviewed and not pertinent - Past Social History Smoking Status: Never Smoked Chewing Tobacco Use: No Cigar Use: No Alcohol: None - CARDIAC Hx Cardiac Disorders: No - PULMONARY Hx Respiratory Disorders: No - NEUROLOGICAL Hx Neurological Disorder: No - HEENT Hx HEENT Problems: No - RENAL Hx Chronic Kidney Disease: No - ENDOCRINE/METABOLIC Hx Endocrine Disorders: No - HEMATOLOGICAL/ONCOLOGICAL Hx Blood Disorders: No Hx AIDS: No Hx Human Immunodeficiency Virus (HIV): No - INTEGUMENTARY Hx Dermatological Problems: No - MUSCULOSKELETAL/RHEUMATOLOGICAL Hx Musculoskeletal Disorders: No Hx Falls: No - GASTROINTESTINAL Hx Gastrointestinal Disorders: No - GENITOURINARY/GYNECOLOGICAL Hx Genitourinary Disorders: No - PSYCHIATRIC Hx Psychophysiologic Disorder: No Hx Substance Use: No - SURGICAL HISTORY Hx Surgeries: No - ANESTHESIA Hx Anesthesia: No Hx Anesthesia Reactions: No Hx Malignant Hyperthermia: No Has any member of the family had a problem w/ anesthesia?: No Meds Allergies/Adverse Reactions: Allergies Allergy/AdvReac Type Severity Reaction Status Date / Time No Known Allergies Allergy Verified 10/14/17 17:09 - Medications Medications: Current Medications Enoxaparin Sodium (Lovenox) 40 mg SC DAILY [facility] PRN Reason: Protocol Last Admin: 10/16/17 09:21 Dose: Not Given Famotidine (Pepcid) 20 mg IVP Q12 [facility] Last Admin: 10/16/17 09:07 Dose: 20 mg Lactated Ringer's (Lactated Ringer's) 1,000 mls @ 100 mls/hr IV .Q10H [facility] Last Admin: 10/15/17 10:11 Dose: 100 mls/hr Sodium Chloride (Sodium Chloride 0.9%) 1,000 mls @ 100 mls/hr IV .Q10H [facility] Stop: 10/16/17 17:21 Last Admin: 10/16/17 04:34 Dose: 100 mls/hr Morphine Sulfate (Morphine) 2 mg IVP Q4 PRN PRN Reason: Pain, severe (8-10) Last Admin: 10/15/17 17:52 Dose: 2 mg Ondansetron HCl (Zofran Inj) 4 mg IVP Q6 PRN PRN Reason: Nausea/Vomiting Last Admin: 10/15/17 16:56 Dose: 4 mg Results - Vital Signs Recent Vital Signs: Last Vital Signs Temp 97.6 F 10/16/17 08:08 Pulse 75 10/16/17 08:08 Resp 18 10/16/17 08:08 BP 132/89 10/16/17 08:08 Pulse Ox 100 10/16/17 08:08 - Labs Result Diagrams: 10/16/17 06:00 10/16/17 06:00 Labs: Laboratory Results - last 24 hr 10/16/17 10/16/17 06:00 06:00 WBC 14.1 H RBC 5.14 Hgb 14.2 D Hct 42.7 MCV 82.9 MCH 27.6 MCHC 33.3 RDW 14.8 H Plt Count 383 MPV 8.5 Neut % (Auto) 68.5 Lymph % (Auto) 18.7 L [place] % (Auto) 12.3 H Eos % (Auto) 0.2 Baso % (Auto) 0.3 Neut # (Auto) 9.6 H Lymph # (Auto) 2.6 [place] # (Auto) 1.7 H Eos # (Auto) 0.0 Baso # (Auto) 0.0 Sodium 130 L Potassium 4.4 Chloride 101 Carbon Dioxide 21 L Anion Gap 12 BUN 28 H Creatinine 0.9 Est GFR ( Amer) > 60 Est GFR (Non-Af Amer) > 60 Random Glucose 84 Calcium 7.7 L Total Bilirubin 1.0 AST 59 H D ALT 66 H D Alkaline Phosphatase 33 L Total Protein 4.9 L Albumin 2.5 L Globulin 2.4 Albumin/Globulin Ratio 1.1 <Jhoan East - Last Filed: 10/16/17 23:41> Meds - Medications Medications: Current Medications Acetaminophen (Tylenol 325mg Tab) 650 mg PO Q4 PRN PRN Reason: Pain, moderate (4-7) Last Admin: 10/16/17 23:03 Dose: 650 mg Enoxaparin Sodium (Lovenox) 40 mg SC DAILY@2100 [facility] PRN Reason: Protocol Last Admin: 10/16/17 21:16 Dose: 40 mg Famotidine (Pepcid) 20 mg IVP Q12 [facility] Last Admin: 10/16/17 21:16 Dose: 20 mg Home Med (Patient's Own Medication) 10 unit PO QNOON [facility] Last Admin: 10/16/17 17:14 Dose: 10 unit Home Med (Patient's Own Medication) 1 unit VAG QNOON [facility] Last Admin: 10/16/17 17:15 Dose: 1 unit Levothyroxine Sodium (Synthroid) 50 mcg PO DAILY@0630 [facility] Morphine Sulfate (Morphine) 2 mg IVP Q4 PRN PRN Reason: Pain, severe (8-10) Last Admin: 10/15/17 17:52 Dose: 2 mg Ondansetron HCl (Zofran Inj) 4 mg IVP Q6 PRN PRN Reason: Nausea/Vomiting Last Admin: 10/15/17 16:56 Dose: 4 mg Multivit/Folic Acid/Iron () 1 tab PO DAILY [facility] Last Admin: 10/16/17 12:20 Dose: 1 tab Results - Vital Signs Recent Vital Signs: Last Vital Signs Temp 98.7 F 10/16/17 16:00 Pulse 74 10/16/17 23:20 Resp 20 10/16/17 16:00 BP 124/74 10/16/17 16:00 Pulse Ox 99 10/16/17 16:00 - Labs Result Diagrams: 10/16/17 06:00 10/16/17 06:00 Labs: Laboratory Results - last 24 hr 10/16/17 10/16/17 06:00 06:00 WBC 14.1 H RBC 5.14 Hgb 14.2 D Hct 42.7 MCV 82.9 MCH 27.6 MCHC 33.3 RDW 14.8 H Plt Count 383 MPV 8.5 Neut % (Auto) 68.5 Lymph % (Auto) 18.7 L [place] % (Auto) 12.3 H Eos % (Auto) 0.2 Baso % (Auto) 0.3 Neut # (Auto) 9.6 H Lymph # (Auto) 2.6 [place] # (Auto) 1.7 H Eos # (Auto) 0.0 Baso # (Auto) 0.0 Sodium 130 L Potassium 4.4 Chloride 101 Carbon Dioxide 21 L Anion Gap 12 BUN 28 H Creatinine 0.9 Est GFR ( Amer) > 60 Est GFR (Non-Af Amer) > 60 Random Glucose 84 Calcium 7.7 L Total Bilirubin 1.0 AST 59 H D ALT 66 H D Alkaline Phosphatase 33 L Total Protein 4.9 L Albumin 2.5 L Globulin 2.4 Albumin/Globulin Ratio 1.1 Assessment & Plan - Assessment and Plan (Free Text) Plan: Addendum: I saw on exam and patient with resident. Due to abdominal distention, recommended to primary team to have a paracentesis done by interventional radiology. I discussed plan with primary physician. Electrolyte replacement and fluid management to be done by primary team. I discussed plan with patient all patient questions answered.
[2017-10-16] MEDS ORDERED: [UNRECOGNIZED DRUG - OTHER] PO SCH (12:00)
[2017-10-16] MEDS ORDERED: [UNRECOGNIZED DRUG - OTHER] VAG SCH (12:00)
[2017-10-16] MEDS: Prenatal Multivit/Folic Acid/Iron Tab PO SCH (12:20)
--- NOTE | 2017-10-16 20:30 | CARD ---
APPROVED REPORT Date of service: 10/15/2017 EXAM: Two-dimensional and M-mode echocardiogram with Doppler and color Doppler. Other Information Quality : GoodRhythm : NSR INDICATION Dyspnea +TROPONIN 2D DIMENSIONS IVSd0.56 (0.7-1.1cm)LVDd3.11 (3.9-5.9cm) LVOT Diameter1.93 (1.8-2.4cm)PWd0.74 (0.7-1.1cm) IVSs0.63 (0.8-1.2cm)LVDs2.75 (2.5-4.0cm) FS (%) 11.5 %PWs0.82 (0.8-1.2cm) M-Mode DIMENSIONS Left Atrium (MM)2.99 (2.5-4.0cm)IVSd0.98 (0.7-1.1cm) Aortic Root2.75 (2.2-3.7cm)LVDd4.23 (4.0-5.6cm) Aortic Cusp Exc.1.79 (1.5-2.0cm)PWd0.88 (0.7-1.1cm) IVSs1.46 cmFS (%) 34 % LVDs2.77 (2.0-3.8cm)PWs1.39 cm Aortic Valve AoV Peak Hxmdtkbs498.9cm/sAoV VTI15.0cmAO Peak GR.5mmHg LVOT Peak Lmvsljzl450.1cm/sLVOT VTI13.82cmAO Mean GR.3mmHg TATO (VMAX)1.34me3PVQ (VTI)1.52cm2 Mitral Valve MV E Tetrnuwe03.3cm/sMV DECEL [id number] A Wtuzczsy68.1cm/s MV DVU96zeE/A ratio1.1MVA (PHT)2.88cm2 TDI Lateral E' Peak V9.94cm/sMedial E' Peak V8.80cm/sE/Lateral E'3.9 E/Medial E'4.4 Pulmonary Valve PV Peak Voleqqwo439.9cm/s Tricuspid Valve TR Peak Bqtlaskj637fc/sRAP [id number] Peak Gr.16mmHg [id number] LEFT VENTRICLE The left ventricle is normal size. There is normal left ventricular wall thickness. The left ventricular function is normal. The left ventricular ejection fraction is within the normal range. The Ejection Fraction is 60-65%. There is normal LV segmental wall motion. The left ventricular diastolic function is normal. RIGHT VENTRICLE The right ventricle is normal size. There is normal right ventricular wall thickness. The right ventricular systolic function is normal. ATRIA The left atrium size is normal. The right atrium size is normal. AORTIC VALVE The aortic valve is normal in structure. There is trace aortic regurgitation. There is no aortic valvular stenosis. MITRAL VALVE The mitral valve is normal in structure. There is no mitral valve stenosis. Mitral regurgitation is trace. TRICUSPID VALVE The tricuspid valve is normal in structure. There is trace tricuspid regurgitation. PULMONIC VALVE The pulmonary valve is normal in structure. There is no pulmonic valvular regurgitation. GREAT VESSELS The aortic root is normal in size. The IVC is normal in size and collapses >50% with inspiration. PERICARDIAL EFFUSION The pericardium appears normal. <Conclusion> The left ventricular function is normal. The left ventricular ejection fraction is within the normal range. The Ejection Fraction is 60-65%. Mitral regurgitation is trace. There is trace tricuspid regurgitation.
--- NOTE | 2017-10-16 20:33 | CARD ---
APPROVED REPORT Date of service: 10/15/2017 EKG Measurement Heart [id number] <Conclusion> Normal sinus rhythm Normal ECG
--- NOTE | 2017-10-16 20:52 | CARD ---
APPROVED REPORT Date of service: 10/14/2017 EKG Measurement Heart [id number] <Conclusion> Normal sinus rhythm Nonspecific ST abnormality Abnormal ECG
[2017-10-17] MEDS: Levothyroxine 50 MCG TAB PO SCH (06:30)
[2017-10-17 07:14] LABS: BASO % 0.3 % (0.0-2.0); EOS % 0.3 % (0.0-4.0); LYMPH # 2.4 K/uL (1.0-4.3); LYMPH % 21.8 % (20.0-40.0); MEAN CELL VOLUME 83.8 fl (81.0-99.0); MEAN CORPUSCULAR HEMOGLOBIN 27.9 pg (27.0-31.0); MEAN CORPUSCULAR HGB CONC 33.3 g/dL (33.0-37.0); MEAN PLATELET VOLUME 8.8 fl (7.2-11.7); MONO # 1.3 K/uL (0.0-0.8); MONO % 11.3 % (0.0-10.0); NEUT # 7.4 K/uL (1.8-7.0); NEUT % 66.3 % (50.0-75.0); RBC 5.01 Mil/uL (3.80-5.20); RED CELL DISTRIBUTION WIDTH 14.8 % (11.5-14.5); WHITE BLOOD COUNT 11.1 K/uL (4.8-10.8)
[2017-10-17 07:40] LABS: ALBUMIN 2.5 g/dL (3.5-5.0); ALT/SGPT 102 U/L (9-52); AST/SGOT 84 U/L (14-36); BLOOD UREA NITROGEN 23 mg/dl (7-17); CALCIUM 7.6 mg/dL (8.4-10.2); GFR AFRICAN-AMERICAN > 60; GFR NON-AFRICAN AMERICAN > 60
[2017-10-17] MEDS: Prenatal Multivit/Folic Acid/Iron Tab PO SCH (08:17)
[2017-10-17] MEDS: [UNRECOGNIZED DRUG - OTHER] PO SCH ×2 (10:26→17:20)
--- NOTE | 2017-10-17 18:21 | CP.PCM.PN ---
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 Pt complains of oliguria, peeing very little 1-2x per day . Pt believes abdominal distension is slowly increasing. Pt is tolerating PO but very little appetite. No fever or severe acute events overnight. Objective - Vital Signs/Intake and Output Vital Signs (last 24 hours): Temp Pulse Resp BP Pulse Ox 97.8 F 87 18 125/80 98 10/17/17 16:39 10/17/17 16:39 10/17/17 16:39 10/17/17 16:39 10/17/17 16:39 - Medications Medications: Current Medications Acetaminophen (Tylenol 325mg Tab) 650 mg PO Q4 PRN PRN Reason: Pain, moderate (4-7) Last Admin: 10/17/17 17:21 Dose: 650 mg Enoxaparin Sodium (Lovenox) 40 mg SC DAILY@2100 [facility] PRN Reason: Protocol Last Admin: 10/16/17 21:16 Dose: 40 mg Famotidine (Pepcid) 20 mg IVP Q12 [facility] Last Admin: 10/17/17 09:33 Dose: 20 mg Home Med (Patient's Own Medication) 10 unit PO BID [facility] Last Admin: 10/17/17 17:20 Dose: 10 unit Home Med (Patient's Own Medication) 1 unit VAG QPM [facility] Levothyroxine Sodium (Synthroid) 50 mcg PO DAILY@0630 [facility] Last Admin: 10/17/17 06:30 Dose: 50 mcg Morphine Sulfate (Morphine) 2 mg IVP Q4 PRN PRN Reason: Pain, severe (8-10) Last Admin: 10/15/17 17:52 Dose: 2 mg Ondansetron HCl (Zofran Inj) 4 mg IVP Q6 PRN PRN Reason: Nausea/Vomiting Last Admin: 10/15/17 16:56 Dose: 4 mg Multivit/Folic Acid/Iron () 1 tab PO DAILY [facility] Last Admin: 10/17/17 08:17 Dose: 1 tab - Labs Labs: 10/17/17 05:30 10/17/17 05:30 PT 12.0 Seconds (9.8-13.1) 10/14/17 17:34 INR 1.1 (0.9-1.2) 10/14/17 17:34 APTT 29.9 Seconds (25.6-37.1) 10/14/17 17:34 - Constitutional Appears: Non-toxic - Head Exam Head Exam: ATRAUMATIC, NORMAL INSPECTION - Eye Exam Eye Exam: EOMI, Normal appearance - ENT Exam ENT Exam: Mucous Membranes Dry - Neck Exam Neck Exam: Full ROM - Respiratory Exam Respiratory Exam: NORMAL BREATHING PATTERN. absent: Accessory Muscle Use, Chest Wall Tenderness - Cardiovascular Exam Cardiovascular Exam: REGULAR RHYTHM, +S1, +S2 - GI/Abdominal Exam GI & Abdominal Exam: Distended, Rigid, Tenderness. absent: Guarding - Extremities Exam Extremities Exam: Full ROM, Normal Inspection - Neurological Exam Neurological Exam: Alert, Awake, Oriented x3 Assessment and Plan - Assessment and Plan (Free Text) Assessment: 36 y/o Female under evaluation of Ovarian Hyperstimulation Syndrome after fertility therapy in [place]. Ascitis on physical exam, transaminitis on lab results. --Will go for paracentesis tomorrow. --Recommend to repeat labwork, especially LFT's. --Continue management as per primary team. Case discussed with Dr Beyer, OB coat ironer hand. FAVIOLAolepauline PGY-1.
[2017-10-17] MEDS: Enoxaparin 40 mg Syringe SC SCH (21:12)
[2017-10-17] MEDS: [UNRECOGNIZED DRUG - OTHER] VAG SCH (21:13)
[2017-10-18 06:12] LABS: BASO % 0.2 % (0.0-2.0); EOS % 0.3 % (0.0-4.0); HEMOGLOBIN 13.4 g/dL (12.0-16.0); LYMPH # 2.1 K/uL (1.0-4.3); LYMPH % 17.3 % (20.0-40.0); MEAN CELL VOLUME 83.7 fl (81.0-99.0); MEAN CORPUSCULAR HEMOGLOBIN 28.2 pg (27.0-31.0); MEAN CORPUSCULAR HGB CONC 33.7 g/dL (33.0-37.0); MEAN PLATELET VOLUME 8.6 fl (7.2-11.7); MONO # 1.1 K/uL (0.0-0.8); MONO % 9.3 % (0.0-10.0); NEUT # 8.9 K/uL (1.8-7.0); NEUT % 72.9 % (50.0-75.0); RBC 4.73 Mil/uL (3.80-5.20); RED CELL DISTRIBUTION WIDTH 14.9 % (11.5-14.5); WHITE BLOOD COUNT 12.2 K/uL (4.8-10.8)
[2017-10-18 06:16] LABS: PARTIAL THROMBOPLASTIN TIME 28.9 Seconds (25.6-37.1); PROTHROMBIN TIME 11.5 Seconds (9.8-13.1)
[2017-10-18 06:40] LABS: ALBUMIN 2.4 g/dL (3.5-5.0); ALT/SGPT 164 U/L (9-52); AST/SGOT 157 U/L (14-36); BLOOD UREA NITROGEN 23 mg/dl (7-17); CALCIUM 7.7 mg/dL (8.4-10.2); GFR AFRICAN-AMERICAN > 60; GFR NON-AFRICAN AMERICAN > 60
[2017-10-18] MEDS: Levothyroxine 50 MCG TAB PO SCH (07:04)
--- NOTE | 2017-10-18 08:01 | CP.PCM.PN ---
<Giovana Hernadez - Last Filed: 10/18/17 08:16> Subjective - Date & Time of Evaluation Date of Evaluation: 10/18/17 Time of Evaluation: 07:00 - Subjective Subjective: Pt is a 36 yo F s/p IVF treatment done in [place] 10/06/17 and successfully from this treatment. She presented to [facility] with abdominal pain and distention on 10/14/17. Patient also developed dyspnea with increased Troponins. Patient was diagnosed with Ovarian hyperstimulation syndrome. Denies CP. Patient is a [facility] patient. Patient was seen and examined at bedside this am. Patient states that she had sharp mid epigastric abdominal pain last night which is controlled by tylenol and nausea controlled by zofran denies any vomitting and has a good appetite, she also states she has had minimal urine output, she denies any dyspnea or diarrhea/constipation. Patient is NPO and scheduled for a paracentesis this AM cleared by Dr. Quezada from cardio standpoint. Objective - Vital Signs/Intake and Output Vital Signs (last 24 hours): Temp Pulse Resp BP Pulse Ox 97.8 F 81 20 133/87 98 10/18/17 05:10 10/18/17 05:10 10/18/17 05:10 10/18/17 05:10 10/18/17 05:10 Intake and Output: Patient states minimal urine output Bladder scan yesterday showed 800cc - Medications Medications: Current Medications Acetaminophen (Tylenol 325mg Tab) 650 mg PO Q4 PRN PRN Reason: Pain, moderate (4-7) Last Admin: 10/18/17 03:56 Dose: 650 mg Enoxaparin Sodium (Lovenox) 40 mg SC DAILY@2100 [facility] PRN Reason: Protocol Last Admin: 10/17/17 21:12 Dose: 40 mg Famotidine (Pepcid) 20 mg IVP Q12 [facility] Last Admin: 10/17/17 21:13 Dose: 20 mg Home Med (Patient's Own Medication) 10 unit PO BID [facility] Last Admin: 10/17/17 17:20 Dose: 10 unit Home Med (Patient's Own Medication) 1 unit VAG QPM [facility] Last Admin: 10/17/17 21:13 Dose: 1 unit Levothyroxine Sodium (Synthroid) 50 mcg PO DAILY@0630 [facility] Last Admin: 10/18/17 07:04 Dose: Not Given Ondansetron HCl (Zofran Inj) 4 mg IVP Q6 PRN PRN Reason: Nausea/Vomiting Last Admin: 10/18/17 03:51 Dose: 4 mg Multivit/Folic Acid/Iron () 1 tab PO DAILY [facility] Last Admin: 10/17/17 08:17 Dose: 1 tab - Labs Labs: 10/18/17 04:20 10/18/17 04:20 PT 11.5 Seconds (9.8-13.1) 10/18/17 04:20 INR 1.0 (0.9-1.2) 10/18/17 04:20 APTT 28.9 Seconds (25.6-37.1) 10/18/17 04:20 - Constitutional Appears: Well, Non-toxic, No Acute Distress - Head Exam Head Exam: ATRAUMATIC, NORMAL INSPECTION, NORMOCEPHALIC - Eye Exam Eye Exam: EOMI, Normal appearance - ENT Exam ENT Exam: Mucous Membranes Moist, Normal Exam - Respiratory Exam Respiratory Exam: NORMAL BREATHING PATTERN - Cardiovascular Exam Cardiovascular Exam: REGULAR RHYTHM, +S1, +S2 - GI/Abdominal Exam GI & Abdominal Exam: Distended, Tenderness, Normal Bowel Sounds Additional comments: Patient has visible Ascitis - Extremities Exam Extremities Exam: Full ROM, Normal Inspection - Neurological Exam Neurological Exam: Alert, Awake, Oriented x3 - Psychiatric Exam Psychiatric exam: Normal Affect, Normal Mood - Skin Skin Exam: Dry, Normal Color, Warm Assessment and Plan (1) Abdominal pain Assessment & Plan: Control with Tylenol Status: Acute (2) Ascites Assessment & Plan: Paracentesis scheduled for this AM, continue to monitor trend is LFT's Status: Acute (3) DVT prophylaxis Assessment & Plan: Continue Lovenox Status: Acute (4) Ovarian hyperstimulation syndrome Assessment & Plan: Continue to monitor for changes in cardiac, pulmonary, renal, liver function, as well as any thromboembolic events, assess after paracentesis Status: Acute (5) Elevated troponin Assessment & Plan: Elevated due to a non cardiac cause as per Dr. Quezada cardio Status: Acute <Michele Anthony S - Last Filed: 10/19/17 12:21> Objective - Vital Signs/Intake and Output Vital Signs (last 24 hours): Temp Pulse Resp BP Pulse Ox 97.8 F 82 20 113/75 97 10/19/17 08:28 10/19/17 08:28 10/19/17 08:28 10/19/17 08:28 10/19/17 08:28 - Medications Medications: Current Medications Docusate Sodium (Colace) 200 mg PO DAILY [facility] Enoxaparin Sodium (Lovenox) 40 mg SC DAILY@2100 [facility] PRN Reason: Protocol Last Admin: 10/18/17 21:25 Dose: 40 mg Famotidine (Pepcid) 20 mg IVP Q12 [facility] Last Admin: 10/19/17 08:57 Dose: 20 mg Home Med (Patient's Own Medication) 10 unit PO BID [facility] Last Admin: 10/19/17 08:58 Dose: 10 unit Home Med (Patient's Own Medication) 1 unit VAG QPM [facility] Last Admin: 10/18/17 17:29 Dose: 1 unit Levothyroxine Sodium (Synthroid) 50 mcg PO DAILY@0630 [facility] Last Admin: 10/19/17 06:12 Dose: 50 mcg Ondansetron HCl (Zofran Inj) 4 mg IVP Q6 PRN PRN Reason: Nausea/Vomiting Last Admin: 10/18/17 03:51 Dose: 4 mg Multivit/Folic Acid/Iron () 1 tab PO DAILY [facility] Last Admin: 10/19/17 08:58 Dose: 1 tab - Labs Labs: 10/19/17 04:20 10/19/17 04:20 PT 11.5 Seconds (9.8-13.1) 10/18/17 04:20 INR 1.0 (0.9-1.2) 10/18/17 04:20 APTT 28.9 Seconds (25.6-37.1) 10/18/17 04:20 Assessment and Plan - Assessment and Plan (Free Text) Assessment: pt seen & examined by me. agree with above assessment and plan.
--- NOTE | 2017-10-18 08:20 | CP.PCM.PN ---
Subjective - Date & Time of Evaluation Date of Evaluation: 10/18/17 Time of Evaluation: 08:19 - Subjective Subjective: pt doing well, comfortable on meds. no f/c, n/v/d. pt is for ir paracentesis today. lft noted to cont to elevate. wbc 12 pt denies cp, sob, palpitations. Objective - Vital Signs/Intake and Output Vital Signs (last 24 hours): Temp Pulse Resp BP Pulse Ox 97.8 F 81 20 133/87 98 10/18/17 05:10 10/18/17 05:10 10/18/17 05:10 10/18/17 05:10 10/18/17 05:10 - Medications Medications: Current Medications Acetaminophen (Tylenol 325mg Tab) 650 mg PO Q4 PRN PRN Reason: Pain, moderate (4-7) Last Admin: 10/18/17 03:56 Dose: 650 mg Enoxaparin Sodium (Lovenox) 40 mg SC DAILY@2100 [facility] PRN Reason: Protocol Last Admin: 10/17/17 21:12 Dose: 40 mg Famotidine (Pepcid) 20 mg IVP Q12 [facility] Last Admin: 10/17/17 21:13 Dose: 20 mg Home Med (Patient's Own Medication) 10 unit PO BID [facility] Last Admin: 10/17/17 17:20 Dose: 10 unit Home Med (Patient's Own Medication) 1 unit VAG QPM [facility] Last Admin: 10/17/17 21:13 Dose: 1 unit Levothyroxine Sodium (Synthroid) 50 mcg PO DAILY@0630 [facility] Last Admin: 10/18/17 07:04 Dose: Not Given Ondansetron HCl (Zofran Inj) 4 mg IVP Q6 PRN PRN Reason: Nausea/Vomiting Last Admin: 10/18/17 03:51 Dose: 4 mg Multivit/Folic Acid/Iron () 1 tab PO DAILY [facility] Last Admin: 10/17/17 08:17 Dose: 1 tab - Labs Labs: 10/18/17 04:20 10/18/17 04:20 PT 11.5 Seconds (9.8-13.1) 10/18/17 04:20 INR 1.0 (0.9-1.2) 10/18/17 04:20 APTT 28.9 Seconds (25.6-37.1) 10/18/17 04:20 - Constitutional Appears: Well, Non-toxic, No Acute Distress - Head Exam Head Exam: ATRAUMATIC, NORMAL INSPECTION, NORMOCEPHALIC - Eye Exam Eye Exam: EOMI, Normal appearance, PERRL Pupil Exam: NORMAL ACCOMODATION, PERRL - ENT Exam ENT Exam: Mucous Membranes Moist, Normal Exam - Neck Exam Neck Exam: Full ROM, Normal Inspection. absent: Lymphadenopathy - Respiratory Exam Respiratory Exam: Clear to Ausculation Bilateral, NORMAL BREATHING PATTERN - Cardiovascular Exam Cardiovascular Exam: REGULAR RHYTHM, +S1, +S2. absent: Murmur - GI/Abdominal Exam GI & Abdominal Exam: Distended, Soft, Normal Bowel Sounds. absent: Tenderness - Extremities Exam Extremities Exam: Full ROM, Normal Capillary Refill, Normal Inspection. absent : Joint Swelling, Pedal Edema - Back Exam Back Exam: NORMAL INSPECTION - Neurological Exam Neurological Exam: Alert, Awake, CN II-XII Intact, Normal Gait, Oriented x3 - Psychiatric Exam Psychiatric exam: Normal Affect, Normal Mood - Skin Skin Exam: Dry, Intact, Normal Color, Warm Assessment and Plan (1) Abdominal pain Assessment & Plan: controlled w/ meds, for paracentesis today Status: Acute (2) Ascites Assessment & Plan: for paracentesis w/ ir today. labs noted. pt has been npo Status: Acute (3) DVT prophylaxis Assessment & Plan: scd nad aehose lovenox Status: Acute (4) Elevated troponin Assessment & Plan: cleared by cardio, trops and echo noted Status: Acute (5) Ovarian hyperstimulation syndrome Assessment & Plan: obgyn following pt. will d/c if hormone therapy should be dc Status: Acute (6) Elevated LFTs Assessment & Plan: trending up ?? r/t hormone therapy cont to moniotr Status: Acute
[2017-10-18] MEDS: Prenatal Multivit/Folic Acid/Iron Tab PO SCH (09:07)
[2017-10-18] MEDS: [UNRECOGNIZED DRUG - OTHER] PO SCH ×2 (09:07→17:29)
[2017-10-18] MEDS ORDERED: Lidocaine Hydrochloride 0 ML INJ ONE (12:42)
--- NOTE | 2017-10-18 13:24 | PCM.SURG1 ---
Surgeon's Initial Post Op Note - Surgeon's Notes Surgeon: Terrence Orellana MD Medical Reception: NONE Type of Anesthesia: None Pre-Operative Diagnosis: Ascites, abdominal pain Operative Findings: US showed ascites Post-Operative Diagnosis: Ascites, abdominal pain Operation Performed: US guided paracentesis Specimen/Specimens Removed: 3 liters of straw colored fluid Estimated Blood Loss: EBL {In ML}: 0 Blood Products Given: N/A Drains Used: No Drains Post-Op Condition: Good Date of Surgery/Procedure: 10/18/17 Time of Surgery/Procedure: 13:20
[2017-10-18 14:02] LABS: BODY FLUID TYPE PERITONEAL
[2017-10-18 15:08] LABS: BF GROSS APPEARANCE CLEAR (CLEAR)
[2017-10-18 15:34] LABS: BODY FLUID MONO/MACROPHAGE 23 % (0-0); BODY FLUID TOTAL COUNT 100 (0-0)
[2017-10-18] MEDS: [UNRECOGNIZED DRUG - OTHER] VAG SCH (17:29)
[2017-10-18] MEDS: Enoxaparin 40 mg Syringe SC SCH (21:25)
[2017-10-19 06:03] LABS: BASO # 0.1 K/uL (0.0-0.2); BASO % 0.5 % (0.0-2.0); EOS # 0.1 K/uL (0.0-0.7); HEMOGLOBIN 13.8 g/dL (12.0-16.0); LYMPH # 2.7 K/uL (1.0-4.3); LYMPH % 24.5 % (20.0-40.0); MEAN CELL VOLUME 83.8 fl (81.0-99.0); MEAN CORPUSCULAR HEMOGLOBIN 28.6 pg (27.0-31.0); MEAN CORPUSCULAR HGB CONC 34.1 g/dL (33.0-37.0); MEAN PLATELET VOLUME 8.6 fl (7.2-11.7); MONO % 8.7 % (0.0-10.0); NEUT # 7.1 K/uL (1.8-7.0); NEUT % 65.3 % (50.0-75.0); NRBC % 0.1 % (0.0-0.0); RBC 4.83 Mil/uL (3.80-5.20); RED CELL DISTRIBUTION WIDTH 14.8 % (11.5-14.5); WHITE BLOOD COUNT 10.9 K/uL (4.8-10.8)
[2017-10-19 06:09] LABS: ALBUMIN 2.6 g/dL (3.5-5.0); ALT/SGPT 350 U/L (9-52); AST/SGOT 254 U/L (14-36); BLOOD UREA NITROGEN 18 mg/dl (7-17); CALCIUM 7.8 mg/dL (8.4-10.2); GFR AFRICAN-AMERICAN > 60; GFR NON-AFRICAN AMERICAN > 60
[2017-10-19] MEDS: Levothyroxine 50 MCG TAB PO SCH (06:12)
--- NOTE | 2017-10-19 07:51 | CP.PCM.PN ---
Subjective - Date & Time of Evaluation Date of Evaluation: 10/19/17 Time of Evaluation: 07:00 - Subjective Subjective: Pt is a 36 yo F s/p IVF treatment done in [place] 10/06/17, + . She presented to [facility] with abdominal pain and distention, dyspnea and increasing troponins on 10/14/17. Patient was diagnosed with Ovarian hyperstimulation syndrome and a paracentesis was done yesterday AM, 3 L of fluid removed. Patient was seen and examined at bedside this am. Patient states that her abdominal pain is well controlled and she didnt need any pain medications last night. Denies chest pain, SOB, nausea and vomitting and has a good appetite, she also states that her urine output has increased. Patient is constipated and has not had a BM yet. Patient is a [facility] patient, was seen by infertility specialist Objective - Vital Signs/Intake and Output Vital Signs (last 24 hours): Temp Pulse Resp BP Pulse Ox 97.9 F 72 18 117/78 96 10/19/17 05:00 10/19/17 05:00 10/19/17 05:00 10/19/17 05:00 10/19/17 05:00 - Medications Medications: Current Medications Acetaminophen (Tylenol 325mg Tab) 650 mg PO Q4 PRN PRN Reason: Pain, moderate (4-7) Last Admin: 10/18/17 12:11 Dose: 650 mg Enoxaparin Sodium (Lovenox) 40 mg SC DAILY@2100 [facility] PRN Reason: Protocol Last Admin: 10/18/17 21:25 Dose: 40 mg Famotidine (Pepcid) 20 mg IVP Q12 [facility] Last Admin: 10/18/17 21:25 Dose: 20 mg Home Med (Patient's Own Medication) 10 unit PO BID [facility] Last Admin: 10/18/17 17:29 Dose: 10 unit Home Med (Patient's Own Medication) 1 unit VAG QPM [facility] Last Admin: 10/18/17 17:29 Dose: 1 unit Levothyroxine Sodium (Synthroid) 50 mcg PO DAILY@0630 [facility] Last Admin: 10/19/17 06:12 Dose: 50 mcg Ondansetron HCl (Zofran Inj) 4 mg IVP Q6 PRN PRN Reason: Nausea/Vomiting Last Admin: 10/18/17 03:51 Dose: 4 mg Multivit/Folic Acid/Iron () 1 tab PO DAILY [facility] Last Admin: 10/18/17 09:07 Dose: 1 tab - Labs Labs: 10/19/17 04:20 10/19/17 04:20 PT 11.5 Seconds (9.8-13.1) 10/18/17 04:20 INR 1.0 (0.9-1.2) 10/18/17 04:20 APTT 28.9 Seconds (25.6-37.1) 10/18/17 04:20 - Constitutional Appears: Well, Non-toxic, No Acute Distress - Head Exam Head Exam: ATRAUMATIC, NORMAL INSPECTION, NORMOCEPHALIC - Eye Exam Eye Exam: EOMI, Normal appearance - ENT Exam ENT Exam: Mucous Membranes Moist, Normal Exam - Neck Exam Neck Exam: Full ROM - Respiratory Exam Respiratory Exam: NORMAL BREATHING PATTERN - Cardiovascular Exam Cardiovascular Exam: REGULAR RHYTHM, +S1, +S2 - GI/Abdominal Exam Additional comments: Slightly distended - Extremities Exam Extremities Exam: Normal Inspection - Neurological Exam Neurological Exam: Alert, Awake, CN II-XII Intact, Normal Gait, Oriented x3 - Psychiatric Exam Psychiatric exam: Anxious Additional comments: Anxious about the rising trend in LFTs Assessment and Plan (1) Abdominal pain Assessment & Plan: No abdominal pain at the moment Status: Resolved (2) Ascites Status: Acute (3) DVT prophylaxis Assessment & Plan: Lovenox, Ae Hose Status: Acute (4) Ovarian hyperstimulation syndrome Assessment & Plan: Monitor increasing trend of LFTs Determine paracentesis results- culture pending, gram stain neg Status: Acute (5) Elevated troponin Assessment & Plan: Non cardiac issue Status: Acute
[2017-10-19] MEDS: Prenatal Multivit/Folic Acid/Iron Tab PO SCH (08:58)
[2017-10-19] MEDS: [UNRECOGNIZED DRUG - OTHER] PO SCH ×2 (08:58→18:09)
--- NOTE | 2017-10-19 09:32 | CP.PCM.CON ---
<Nicole Huffman - Last Filed: 10/19/17 09:49> History of Present Illness - History of Present Illness History of Present Illness: 36 y/o F s/p embryo transfer 10/06/2017 admitted for abdominal pain & found to have ascites during this admission reports she is feeling much better this AM. Patient had 3 L of fluid drained yesterday. Patient voided once this AM & twice yesterday. Review of Systems - Constitutional Additional comments: denies fever, chills - Cardiovascular Additional comments: denies chest pain - Respiratory Additional comments: denies shortness of breath - Gastrointestinal Additional comments: denies abd pain Past Patient History - Infectious Disease Hx of Infectious Diseases: None - Past Medical History & Family History Past Medical History?: No Past Family History: Reviewed and not pertinent - Past Social History Smoking Status: Never Smoked Chewing Tobacco Use: No Cigar Use: No Alcohol: None - CARDIAC Hx Cardiac Disorders: No - PULMONARY Hx Respiratory Disorders: No - NEUROLOGICAL Hx Neurological Disorder: No - HEENT Hx HEENT Problems: No - RENAL Hx Chronic Kidney Disease: No - ENDOCRINE/METABOLIC Hx Endocrine Disorders: No - HEMATOLOGICAL/ONCOLOGICAL Hx Blood Disorders: No Hx AIDS: No Hx Human Immunodeficiency Virus (HIV): No - INTEGUMENTARY Hx Dermatological Problems: No - MUSCULOSKELETAL/RHEUMATOLOGICAL Hx Musculoskeletal Disorders: No Hx Falls: No - GASTROINTESTINAL Hx Gastrointestinal Disorders: No - GENITOURINARY/GYNECOLOGICAL Hx Genitourinary Disorders: No - PSYCHIATRIC Hx Psychophysiologic Disorder: No Hx Substance Use: No - SURGICAL HISTORY Hx Surgeries: No - ANESTHESIA Hx Anesthesia: No Hx Anesthesia Reactions: No Hx Malignant Hyperthermia: No Has any member of the family had a problem w/ anesthesia?: No Meds Allergies/Adverse Reactions: Allergies Allergy/AdvReac Type Severity Reaction Status Date / Time No Known Allergies Allergy Verified 10/14/17 17:09 - Medications Medications: Current Medications Docusate Sodium (Colace) 200 mg PO DAILY [facility] Enoxaparin Sodium (Lovenox) 40 mg SC DAILY@2100 [facility] PRN Reason: Protocol Last Admin: 10/18/17 21:25 Dose: 40 mg Famotidine (Pepcid) 20 mg IVP Q12 [facility] Last Admin: 10/19/17 08:57 Dose: 20 mg Home Med (Patient's Own Medication) 10 unit PO BID [facility] Last Admin: 10/19/17 08:58 Dose: 10 unit Home Med (Patient's Own Medication) 1 unit VAG QPM [facility] Last Admin: 10/18/17 17:29 Dose: 1 unit Levothyroxine Sodium (Synthroid) 50 mcg PO DAILY@0630 [facility] Last Admin: 10/19/17 06:12 Dose: 50 mcg Ondansetron HCl (Zofran Inj) 4 mg IVP Q6 [facility]N PRN Reason: Nausea/Vomiting Last Admin: 10/18/17 03:51 Dose: 4 mg Multivit/Folic Acid/Iron () 1 tab PO DAILY [facility] Last Admin: 10/19/17 08:58 Dose: 1 tab Physical Exam - Constitutional Appears: Well - Respiratory Exam Respiratory Exam: Clear to Auscultation Bilateral - Cardiovascular Exam Cardiovascular Exam: REGULAR RHYTHM, +S1, +S2 - GI/Abdominal Exam GI & Abdominal Exam: Normal Bowel Sounds Additional comments: no guarding or tenderness noted Results - Vital Signs Recent Vital Signs: Last Vital Signs Temp 97.8 F 10/19/17 08:28 Pulse 82 10/19/17 08:28 Resp 20 10/19/17 08:28 BP 113/75 10/19/17 08:28 Pulse Ox 97 10/19/17 08:28 - Labs Result Diagrams: 10/19/17 04:20 10/19/17 04:20 Labs: Laboratory Results - last 24 hr 10/18/17 10/18/17 10/19/17 13:14 13:50 04:20 WBC RBC Hgb Hct MCV MCH MCHC RDW Plt Count MPV Neut % (Auto) Lymph % (Auto) Kaufman % (Auto) Eos % (Auto) Baso % (Auto) Neut # (Auto) Lymph # (Auto) Kaufman # (Auto) Eos # (Auto) Baso # (Auto) Sodium 130 L Potassium 4.1 Chloride 102 Carbon Dioxide 22 Anion Gap 10 BUN 18 H Creatinine 0.7 Est GFR ( Amer) > 60 Est GFR (Non-Af Amer) > 60 Random Glucose 113 H Calcium 7.8 L Total Bilirubin 0.5 AST 254 H D ALT 350 H D Alkaline Phosphatase 56 Total Protein 5.2 L Albumin 2.6 L Globulin 2.6 Albumin/Globulin Ratio 1.0 Lipase 97 Fluid Source Peritoneal Fluid Appearance Clear Fluid WBC 47.0 Fluid RBC 302.0 H Fluid Tot Cell Count 100 H Fluid Neutrophils 61.0 H Fluid Lymphocytes 16.0 H Fld Monocyte/Macrophag 23 H Fluid Comment Yellow 10/19/17 04:20 WBC 10.9 H RBC 4.83 Hgb 13.8 Hct 40.5 MCV 83.8 MCH 28.6 MCHC 34.1 RDW 14.8 H Plt Count 373 MPV 8.6 Neut % (Auto) 65.3 Lymph % (Auto) 24.5 Kaufman % (Auto) 8.7 Eos % (Auto) 1.0 Baso % (Auto) 0.5 Neut # (Auto) 7.1 H Lymph # (Auto) 2.7 Kaufman # (Auto) 1.0 H Eos # (Auto) 0.1 Baso # (Auto) 0.1 Sodium Potassium Chloride Carbon Dioxide Anion Gap BUN Creatinine Est GFR ( Amer) Est GFR (Non-Af Amer) Random Glucose Calcium Total Bilirubin AST ALT Alkaline Phosphatase Total Protein Albumin Globulin Albumin/Globulin Ratio Lipase Fluid Source Fluid Appearance Fluid WBC Fluid RBC Fluid Tot Cell Count Fluid Neutrophils Fluid Lymphocytes Fld Monocyte/Macrophag Fluid Comment Assessment & Plan - Assessment and Plan (Free Text) Assessment: 36 yo F s/p embryo transfer 10/06/2017 admitted for abdominal pain with drained ascites. 1. Recommend discontinuation of tylenol because of increasing LFT. <Ann-Marie Crump - Last Filed: 10/21/17 09:15> Meds - Medications Medications: Current Medications Albumin Human (Albumin Human 25% (12.5 Gm/50 Ml)) 12.5 gm IV BID [facility] Last Admin: 10/21/17 08:32 Dose: 12.5 gm Docusate Sodium (Colace) 200 mg PO DAILY [facility] Last Admin: 10/21/17 08:35 Dose: 200 mg Enoxaparin Sodium (Lovenox) 40 mg SC DAILY@2100 [facility] PRN Reason: Protocol Last Admin: 10/20/17 21:34 Dose: 40 mg Famotidine (Pepcid) 20 mg IVP Q12 [facility] Last Admin: 10/21/17 09:03 Dose: 20 mg Home Med (Patient's Own Medication) 10 unit PO BID [facility] Last Admin: 10/21/17 08:36 Dose: 10 unit Home Med (Patient's Own Medication) 1 unit VAG QPM [facility] Last Admin: 10/20/17 17:49 Dose: 1 unit Levothyroxine Sodium (Synthroid) 75 mcg PO DAILY@0400 [facility] Last Admin: 10/21/17 03:17 Dose: 75 mcg Ondansetron HCl (Zofran Inj) 4 mg IVP Q6 PRN PRN Reason: Nausea/Vomiting Last Admin: 10/20/17 08:48 Dose: 4 mg Multivit/Folic Acid/Iron () 1 tab PO DAILY [facility] Last Admin: 10/21/17 08:33 Dose: 1 tab Results - Vital Signs Recent Vital Signs: Last Vital Signs Temp 98.4 F 10/21/17 08:12 Pulse 84 10/21/17 08:12 Resp 20 10/21/17 08:12 BP 122/76 10/21/17 08:12 Pulse Ox 97 10/21/17 08:12 - Labs Result Diagrams: 10/21/17 05:30 10/21/17 05:30 Labs: Laboratory Results - last 24 hr 10/20/17 10/20/17 10/20/17 04:20 05:00 12:18 WBC RBC Hgb Hct MCV MCH MCHC RDW Plt Count MPV Neut % (Auto) Lymph % (Auto) Kaufman % (Auto) Eos % (Auto) Baso % (Auto) Neut # (Auto) Lymph # (Auto) Kaufman # (Auto) Eos # (Auto) Baso # (Auto) Sodium Potassium Chloride Carbon Dioxide Anion Gap BUN Creatinine Est GFR ( Amer) Est GFR (Non-Af Amer) Random Glucose Hemoglobin A1c 5.1 Serum Osmolality 278 Calcium Phosphorus Magnesium Total Bilirubin AST ALT Alkaline Phosphatase Total Protein Albumin Globulin Albumin/Globulin Ratio Beta HCG, Quant 267.91 Urine Osmolality Ur Random Sodium Ur Random Potassium 10/20/17 10/21/17 10/21/17 18:18 05:30 05:30 WBC 11.5 H RBC 4.25 Hgb 11.9 L Hct 35.2 MCV 82.8 MCH 27.9 MCHC 33.6 RDW 14.9 H Plt Count 363 MPV 8.0 Neut % (Auto) 67.6 Lymph % (Auto) 20.7 Kaufman % (Auto) 10.1 H Eos % (Auto) 1.1 Baso % (Auto) 0.5 Neut # (Auto) 7.8 H Lymph # (Auto) 2.4 Kaufman # (Auto) 1.2 H Eos # (Auto) 0.1 Baso # (Auto) 0.1 Sodium 132 Potassium 4.6 Chloride 100 Carbon Dioxide 26 Anion Gap 11 BUN 14 Creatinine 0.6 L Est GFR ( Amer) > 60 Est GFR (Non-Af Amer) > 60 Random Glucose 80 Hemoglobin A1c Serum Osmolality Calcium 8.2 L Phosphorus 3.7 Magnesium 2.0 Total Bilirubin 0.3 AST 302 H D ALT 498 H D Alkaline Phosphatase 56 Total Protein 5.2 L Albumin 2.8 L Globulin 2.4 Albumin/Globulin Ratio 1.1 Beta HCG, Quant Urine Osmolality 534 Ur Random Sodium 142 Ur Random Potassium 32.7 Assessment & Plan - Assessment and Plan (Free Text) Assessment: OB Hospitalist Addendum: Pt seen and examined by me. Agree w/ above. 36 yo s/ p IVF treatment on 10/06/2017, now w/ OHSS, w/ elevated LFTs. Pt told to avoid tylenol this am. (ES)
--- NOTE | 2017-10-19 10:26 | CP.PCM.PN ---
Subjective - Date & Time of Evaluation Date of Evaluation: 10/19/17 Time of Evaluation: 08:25 - Subjective Subjective: pt doing well. no f/c, n/v/d. no abd pain. 3l fluid drained from abd. lft noted, per adult education instructor team this is normal w/ hormone therapy. wbc trending down. pt has good appetite. voiding well Objective - Vital Signs/Intake and Output Vital Signs (last 24 hours): Temp Pulse Resp BP Pulse Ox 97.8 F 82 20 113/75 97 10/19/17 08:28 10/19/17 08:28 10/19/17 08:28 10/19/17 08:28 10/19/17 08:28 - Medications Medications: Current Medications Docusate Sodium (Colace) 200 mg PO DAILY [facility] Enoxaparin Sodium (Lovenox) 40 mg SC DAILY@2100 [facility] PRN Reason: Protocol Last Admin: 10/18/17 21:25 Dose: 40 mg Famotidine (Pepcid) 20 mg IVP Q12 [facility] Last Admin: 10/19/17 08:57 Dose: 20 mg Home Med (Patient's Own Medication) 10 unit PO BID [facility] Last Admin: 10/19/17 08:58 Dose: 10 unit Home Med (Patient's Own Medication) 1 unit VAG QPM [facility] Last Admin: 10/18/17 17:29 Dose: 1 unit Levothyroxine Sodium (Synthroid) 50 mcg PO DAILY@0630 [facility] Last Admin: 10/19/17 06:12 Dose: 50 mcg Ondansetron HCl (Zofran Inj) 4 mg IVP Q6 PRN PRN Reason: Nausea/Vomiting Last Admin: 10/18/17 03:51 Dose: 4 mg Multivit/Folic Acid/Iron () 1 tab PO DAILY [facility] Last Admin: 10/19/17 08:58 Dose: 1 tab - Labs Labs: 10/19/17 04:20 10/19/17 04:20 PT 11.5 Seconds (9.8-13.1) 10/18/17 04:20 INR 1.0 (0.9-1.2) 10/18/17 04:20 APTT 28.9 Seconds (25.6-37.1) 10/18/17 04:20 - Constitutional Appears: Well, Non-toxic, In Acute Distress - Head Exam Head Exam: ATRAUMATIC, NORMAL INSPECTION, NORMOCEPHALIC - Eye Exam Eye Exam: EOMI, Normal appearance, PERRL Pupil Exam: NORMAL ACCOMODATION, PERRL - ENT Exam ENT Exam: Mucous Membranes Moist, Normal Exam - Neck Exam Neck Exam: Full ROM, Normal Inspection. absent: Lymphadenopathy - Respiratory Exam Respiratory Exam: Clear to Ausculation Bilateral, NORMAL BREATHING PATTERN - Cardiovascular Exam Cardiovascular Exam: REGULAR RHYTHM, RRR, +S1, +S2. absent: Murmur - GI/Abdominal Exam GI & Abdominal Exam: Soft, Normal Bowel Sounds. absent: Tenderness Additional comments: dsg to r flank c/d/i - Extremities Exam Extremities Exam: Full ROM, Normal Capillary Refill, Normal Inspection. absent : Joint Swelling, Pedal Edema - Back Exam Back Exam: NORMAL INSPECTION - Neurological Exam Neurological Exam: Alert, Awake, CN II-XII Intact, Normal Gait, Oriented x3 - Psychiatric Exam Psychiatric exam: Normal Affect, Normal Mood - Skin Skin Exam: Dry, Intact, Normal Color, Warm Assessment and Plan (1) Abdominal pain Status: Resolved (2) Ascites Status: Acute (3) DVT prophylaxis Status: Acute (4) Elevated troponin Status: Acute (5) Ovarian hyperstimulation syndrome Status: Acute (6) Elevated LFTs Status: Acute - Assessment and Plan (Free Text) Assessment: (1) Abdominal pain Assessment & Plan: controlled w/ meds, for paracentesis today no further pain Status: Acute (2) Ascites Assessment & Plan: for paracentesis w/ ir today. labs noted. pt has been npo 3l fluid removed, pending all lab studies and c/s less distention/pain today Status: Acute (3) DVT prophylaxis Assessment & Plan: scd nad aehose lovenox Status: Acute (4) Elevated troponin Assessment & Plan: cleared by cardio, trops and echo noted Status: Acute (5) Ovarian hyperstimulation syndrome Assessment & Plan: obgyn following pt. will d/c if hormone therapy should be dc-house obgyn team feels hormones should remain. Status: Acute (6) Elevated LFTs Assessment & Plan: trending up ?? r/t hormone therapy cont to moniotr will set up outpt GI Status: Acute
[2017-10-19 12:41] LABS: T4 12.4 ug/dl (5.5-11.0)
[2017-10-19 12:54] LABS: T3 0.922 nmol/L (1.49-2.60)
[2017-10-19] MEDS ORDERED: Albumin Human 25% (12.5 gm/50 ml) IV ONE (15:29)
[2017-10-19 16:40] LABS: HEPATITIS B SURFACE AG Negative (NEGATIVE)
[2017-10-19 16:46] LABS: HEPATITIS B CORE AB NEGATIVE (NEGATIVE)
[2017-10-19 16:47] LABS: HEPATITIS A IGM NEGATIVE (NEGATIVE)
[2017-10-19 16:57] LABS: HEPATITIS C ANTIBODY NEGATIVE (NEGATIVE)
--- NOTE | 2017-10-19 17:46 | CP.PCM.CON ---
<Waqas Gold - Last Filed: 10/19/17 17:43> History of Present Illness - History of Present Illness History of Present Illness: called in to consult on a 40 yo g1 who was admitted via emergency room with severe ascitis after [place]. ptwas significantly sob and had severe ascitis. A paracenthesis was performed yesterday and 3 liters of ascites were aspirated. pt is feeling better but ascitis already re-forming Review of Systems - Review of Systems Review of Systems: pt with some mild rspiratory difficvulty , but normal sats. able to ambulate without assistance - Gastrointestinal Gastrointestinal: Abdominal Pain, Bloating Past Patient History - Infectious Disease Hx of Infectious Diseases: None - Past Medical History & Family History Past Medical History?: No Past Family History: Reviewed and not pertinent - Past Social History Smoking Status: Never Smoked Chewing Tobacco Use: No Cigar Use: No Alcohol: None - CARDIAC Hx Cardiac Disorders: No - PULMONARY Hx Respiratory Disorders: No - NEUROLOGICAL Hx Neurological Disorder: No - HEENT Hx HEENT Problems: No - RENAL Hx Chronic Kidney Disease: No - ENDOCRINE/METABOLIC Hx Endocrine Disorders: No - HEMATOLOGICAL/ONCOLOGICAL Hx Blood Disorders: No Hx AIDS: No Hx Human Immunodeficiency Virus (HIV): No - INTEGUMENTARY Hx Dermatological Problems: No - MUSCULOSKELETAL/RHEUMATOLOGICAL Hx Musculoskeletal Disorders: No Hx Falls: No - GASTROINTESTINAL Hx Gastrointestinal Disorders: No - GENITOURINARY/GYNECOLOGICAL Hx Genitourinary Disorders: No - PSYCHIATRIC Hx Psychophysiologic Disorder: No Hx Substance Use: No - SURGICAL HISTORY Hx Surgeries: No - ANESTHESIA Hx Anesthesia: No Hx Anesthesia Reactions: No Hx Malignant Hyperthermia: No Has any member of the family had a problem w/ anesthesia?: No Meds Allergies/Adverse Reactions: Allergies Allergy/AdvReac Type Severity Reaction Status Date / Time No Known Allergies Allergy Verified 10/14/17 17:09 - Medications Medications: Current Medications Docusate Sodium (Colace) 200 mg PO DAILY [facility] Enoxaparin Sodium (Lovenox) 40 mg SC DAILY@2100 [facility] PRN Reason: Protocol Last Admin: 10/18/17 21:25 Dose: 40 mg Famotidine (Pepcid) 20 mg IVP Q12 [facility] Last Admin: 10/19/17 08:57 Dose: 20 mg Home Med (Patient's Own Medication) 10 unit PO BID [facility] Last Admin: 10/19/17 08:58 Dose: 10 unit Home Med (Patient's Own Medication) 1 unit VAG QPM [facility] Last Admin: 10/18/17 17:29 Dose: 1 unit Lactated Ringer's (Lactated Ringer's) 1,000 mls @ 100 mls/hr IV .Q10H [facility] Levothyroxine Sodium (Synthroid) 75 mcg PO DAILY@0400 [facility] Ondansetron HCl (Zofran Inj) 4 mg IVP Q6 PRN PRN Reason: Nausea/Vomiting Last Admin: 10/18/17 03:51 Dose: 4 mg Multivit/Folic Acid/Iron () 1 tab PO DAILY [facility] Last Admin: 10/19/17 08:58 Dose: 1 tab Physical Exam - Constitutional Additional comments: mild distress - GI/Abdominal Exam GI & Abdominal Exam: Distended, Hypoactive Bowel Sounds - Extremities Exam Additional comments: upper thigh edema Results - Vital Signs Recent Vital Signs: Last Vital Signs Temp 97.9 F 10/19/17 15:48 Pulse 91 H 10/19/17 15:48 Resp 20 10/19/17 15:48 BP 120/81 10/19/17 15:48 Pulse Ox 99 10/19/17 15:48 - Labs Result Diagrams: 10/19/17 04:20 10/19/17 04:20 Labs: Laboratory Results - last 24 hr 10/19/17 10/19/17 10/19/17 04:20 04:20 12:00 WBC 10.9 H RBC 4.83 Hgb 13.8 Hct 40.5 MCV 83.8 MCH 28.6 MCHC 34.1 RDW 14.8 H Plt Count 373 MPV 8.6 Neut % (Auto) 65.3 Lymph % (Auto) 24.5 Amador % (Auto) 8.7 Eos % (Auto) 1.0 Baso % (Auto) 0.5 Neut # (Auto) 7.1 H Lymph # (Auto) 2.7 Amador # (Auto) 1.0 H Eos # (Auto) 0.1 Baso # (Auto) 0.1 Sodium 130 L Potassium 4.1 Chloride 102 Carbon Dioxide 22 Anion Gap 10 BUN 18 H Creatinine 0.7 Est GFR ( Amer) > 60 Est GFR (Non-Af Amer) > 60 Random Glucose 113 H Calcium 7.8 L Total Bilirubin 0.5 AST 254 H D ALT 350 H D Alkaline Phosphatase 56 Total Protein 5.2 L Albumin 2.6 L Globulin 2.6 Albumin/Globulin Ratio 1.0 Thyroxine (T4) 12.4 H Total T3 0.922 L TSH 3rd Generation 12.00 H Hepatitis A IgM Ab Hep Bs Antigen Hep B Core IgM Ab Hepatitis C Antibody 10/19/17 12:00 WBC RBC Hgb Hct MCV MCH MCHC RDW Plt Count MPV Neut % (Auto) Lymph % (Auto) Amador % (Auto) Eos % (Auto) Baso % (Auto) Neut # (Auto) Lymph # (Auto) Amador # (Auto) Eos # (Auto) Baso # (Auto) Sodium Potassium Chloride Carbon Dioxide Anion Gap BUN Creatinine Est GFR ( Amer) Est GFR (Non-Af Amer) Random Glucose Calcium Total Bilirubin AST ALT Alkaline Phosphatase Total Protein Albumin Globulin Albumin/Globulin Ratio Thyroxine (T4) Total T3 TSH 3rd Generation Hepatitis A IgM Ab Negative Hep Bs Antigen Negative Hep B Core IgM Ab Negative Hepatitis C Antibody Negative Assessment & Plan - Assessment and Plan (Free Text) Assessment: 5 week prtegnant s/p ivf et moderate OHSS severe hyporthyroidism ellevated lft's secondary to cholestasis Plan: continue management of electrolytes add salt poor abumin bid contiue cv monitoring repeat bhcg in am repeat lft in am may need a second paracenthesis - Date & Time Date: 10/19/17 Time: 17:53 <Mary Jane Almeida - Last Filed: 10/21/17 11:24> History of Present Illness - History of Present Illness History of Present Illness: agree with above managmet as per RIMMA Gold Thank you for consult Meds - Medications Medications: Current Medications Albumin Human (Albumin Human 25% (12.5 Gm/50 Ml)) 12.5 gm IV BID [facility] Last Admin: 10/21/17 08:32 Dose: 12.5 gm Docusate Sodium (Colace) 200 mg PO DAILY [facility] Last Admin: 10/21/17 08:35 Dose: 200 mg Enoxaparin Sodium (Lovenox) 40 mg SC DAILY@2100 [facility] PRN Reason: Protocol Last Admin: 10/20/17 21:34 Dose: 40 mg Famotidine (Pepcid) 20 mg IVP Q12 [facility] Last Admin: 10/21/17 09:03 Dose: 20 mg Home Med (Patient's Own Medication) 10 unit PO BID [facility] Last Admin: 10/21/17 08:36 Dose: 10 unit Home Med (Patient's Own Medication) 1 unit VAG QPM [facility] Last Admin: 10/20/17 17:49 Dose: 1 unit Levothyroxine Sodium (Synthroid) 75 mcg PO DAILY@0400 [facility] Last Admin: 10/21/17 03:17 Dose: 75 mcg Ondansetron HCl (Zofran Inj) 4 mg IVP Q6 PRN PRN Reason: Nausea/Vomiting Last Admin: 10/20/17 08:48 Dose: 4 mg Multivit/Folic Acid/Iron () 1 tab PO DAILY [facility] Last Admin: 10/21/17 08:33 Dose: 1 tab Results - Vital Signs Recent Vital Signs: Last Vital Signs Temp 98.4 F 10/21/17 08:12 Pulse 84 10/21/17 08:12 Resp 20 10/21/17 08:12 BP 122/76 10/21/17 08:12 Pulse Ox 97 10/21/17 08:12 - Labs Result Diagrams: 10/21/17 05:30 10/21/17 05:30 Labs: Laboratory Results - last 24 hr 10/20/17 10/20/17 10/20/17 04:20 12:18 18:18 WBC RBC Hgb Hct MCV MCH MCHC RDW Plt Count MPV Neut % (Auto) Lymph % (Auto) Amador % (Auto) Eos % (Auto) Baso % (Auto) Neut # (Auto) Lymph # (Auto) Amador # (Auto) Eos # (Auto) Baso # (Auto) Sodium Potassium Chloride Carbon Dioxide Anion Gap BUN Creatinine Est GFR ( Amer) Est GFR (Non-Af Amer) Random Glucose Hemoglobin A1c 5.1 Serum Osmolality 278 Calcium Phosphorus Magnesium Total Bilirubin AST ALT Alkaline Phosphatase Total Protein Albumin Globulin Albumin/Globulin Ratio Urine Osmolality 534 U Random Total Protein Ur Random Sodium 142 Ur Random Potassium 32.7 10/21/17 10/21/17 10/21/17 05:30 05:30 09:07 WBC 11.5 H RBC 4.25 Hgb 11.9 L Hct 35.2 MCV 82.8 MCH 27.9 MCHC 33.6 RDW 14.9 H Plt Count 363 MPV 8.0 Neut % (Auto) 67.6 Lymph % (Auto) 20.7 Amador % (Auto) 10.1 H Eos % (Auto) 1.1 Baso % (Auto) 0.5 Neut # (Auto) 7.8 H Lymph # (Auto) 2.4 Amador # (Auto) 1.2 H Eos # (Auto) 0.1 Baso # (Auto) 0.1 Sodium 132 Potassium 4.6 Chloride 100 Carbon Dioxide 26 Anion Gap 11 BUN 14 Creatinine 0.6 L Est GFR ( Amer) > 60 Est GFR (Non-Af Amer) > 60 Random Glucose 80 Hemoglobin A1c Serum Osmolality Calcium 8.2 L Phosphorus 3.7 Magnesium 2.0 Total Bilirubin 0.3 AST 302 H D ALT 498 H D Alkaline Phosphatase 56 Total Protein 5.2 L Albumin 2.8 L Globulin 2.4 Albumin/Globulin Ratio 1.1 Urine Osmolality U Random Total Protein 10.0 Ur Random Sodium 73 Ur Random Potassium
[2017-10-19] MEDS: [UNRECOGNIZED DRUG - OTHER] VAG SCH (18:09)
[2017-10-19] MEDS: Lactated Ringer's 1,000 ML IV SCH (18:37)
[2017-10-19] MEDS: Enoxaparin 40 mg Syringe SC SCH (21:36)
--- NOTE | 2017-10-20 01:35 | CON ---
Copied To: Sommer Chawla MD Attending MD: Sommer Chawla MD DATE: 10/19/2017 ENDOCRINOLOGY CONSULTATION LOCATION: Room 408, bed 1. HISTORY OF PRESENT ILLNESS: This is a 36-year-old female with known history of hypothyroidism, currently on levothyroxine replacement therapy, and has now been admitted with progressively worsening diffuse abdominal pain and distention and has been evaluated to have ovarian hyperstimulation syndrome following a recent hormonal therapy in [place] for infertility and is now being referred for endocrine evaluation of abnormal thyroid studies. PAST MEDICAL HISTORY: History of hypothyroidism related to underlying autoimmune thyroiditis and has been on levothyroxine 50 mcg once daily as noted. History of relative infertility and this is now her second IVF attempt for improved fertility and she went to [place] for this hormonal treatment as mentioned. She was there about three weeks ago and received a 10-day hormonal hyperstimulation treatment with her doctors, and on 10/01/2017 had a retrieval and transfer of fertilized egg and came back to this country for further workup and management. FAMILY HISTORY: No known thyroid endocrinopathy. Positive for hypertension and heart disease. SOCIAL HISTORY: The patient has a supportive family. No known substance use. REVIEW OF SYSTEMS: As mentioned above, admits to episodic bouts of dizziness and lightheadedness with bifrontal headaches. No chest pain, palpitations, or PNDs. She admits to initial upper abdominal pain with progressively worsening diffuse abdominal pain with marked abdominal distention prompting this admission. No recent alterations in the bowel and urinary patterns, otherwise. PHYSICAL EXAMINATION: GENERAL: This is an average-built female, in no apparent distress. VITAL SIGNS: With a blood pressure of 140/80, pulse of 70 beats per minute and regular, temperature 98, respirations 20. Height is 5 feet 7 inches. Weight is 148 pounds. HEENT: Head normocephalic. Eyes anicteric with pink conjunctivae. Funduscopy not possible at this time. Ears, nose, and throat otherwise normal. NECK: Supple. Thyroid gland shows mild diffuse thyromegaly which is firm and nontender with no overt thyroid bruits or thyroid nodules noted. HEART: Adynamic precordium. S1, S2 are rapid and regular. LUNGS: Clear to auscultation. ABDOMEN: Distended, firm, and tender. Bowel sounds are present. EXTREMITIES: No peripheral edema. Pulses are +2 bilaterally. LABORATORY DATA: WBC is 22.8, hemoglobin of 16, hematocrit of 49, and platelets 476. Chemistries: BUN of 32, sodium 131, potassium 5, chloride 102, CO2 of 18, glucose 110, and creatinine 1.3. ASSESSMENT: This is a 36-year-old female with very early intrauterine , possibly four weeks as per the patient, with recent in vitro fertilization and hormonal treatment in [place], presenting here with ovarian hyperstimulation syndrome with moderate ascites and underwent a paracentesis procedure as noted thereof. She also has overt early hypothyroidism most likely related to a subtherapeutic levothyroxine replacement therapy as noted. She has underlying autoimmune thyroiditis with a small non-toxic, diffuse goiter as noted. PLAN OF MANAGEMENT: As discussed with the patient lengthily at bedside, imperative need for a more optimal metabolic control, especially with the need for euthyroidism with could not but be overemphasized. We will increase her levothyroxine as the level today just came in with a TSH of 12 and increase her levothyroxine to 75 mcg once daily to start tomorrow morning as ordered. We will obtain a comprehensive hormonal profile with a total and free T4 and TSH and also a thyroid peroxidase antibody. We will also add a hemoglobin A1c to screen for any underlying glucose intolerance. We will obtain serial chemistries and supplement accordingly as needed. We will follow. Sommer Chawla MD
[2017-10-20] MEDS: Levothyroxine 75 MCG TAB PO SCH (03:08)
[2017-10-20 05:33] LABS: HEMOGLOBIN 12.2 g/dL (12.0-16.0); MEAN CORPUSCULAR HEMOGLOBIN 28.1 pg (27.0-31.0); MEAN CORPUSCULAR HGB CONC 33.9 g/dL (33.0-37.0); RBC 4.32 Mil/uL (3.80-5.20); RED CELL DISTRIBUTION WIDTH 14.8 % (11.5-14.5); WHITE BLOOD COUNT 10.8 K/uL (4.8-10.8)
[2017-10-20 05:46] LABS: ALBUMIN 2.5 g/dL (3.5-5.0); ALT/SGPT 386 U/L (9-52); AST/SGOT 241 U/L (14-36); BLOOD UREA NITROGEN 15 mg/dl (7-17); CALCIUM 7.9 mg/dL (8.4-10.2); GFR AFRICAN-AMERICAN > 60; GFR NON-AFRICAN AMERICAN > 60
[2017-10-20 05:57] LABS: T4 12.9 ug/dl (5.5-11.0)
[2017-10-20] MEDS ORDERED: Levothyroxine 75 MCG TAB PO SCH (06:30)
[2017-10-20] MEDS: Lactated Ringer's 1,000 ML IV SCH ×2 (06:34→12:17)
--- NOTE | 2017-10-20 08:06 | CP.PCM.PN ---
Subjective - Date & Time of Evaluation Date of Evaluation: 10/20/17 Time of Evaluation: 07:00 - Subjective Subjective: Pt is a 36 yo F s/p IVF treatment done in [place] 10/06/17, + 5wk . She presented to [facility] with abdominal pain and distention, dyspnea and increasing troponins on 10/14/17. Patient was diagnosed with Ovarian hyperstimulation syndrome and a paracentesis s/p day 2, severe hypothyroidism. Patient was seen and examined at bedside this am. Patient states she feels slight mid epigastric pain when trying to stand but didn't need any pain medications last night. Denies chest pain, SOB, nausea and vomiting and has a good appetite, she also states that her urine output has increased. Patient is constipated and still has not had a bowel movement since admission. Patient is a [facility] patient, was seen by infertility specialist and endocrine consult Objective - Vital Signs/Intake and Output Vital Signs (last 24 hours): Temp Pulse Resp BP Pulse Ox 98.1 F 79 18 109/67 98 10/20/17 05:12 10/20/17 05:12 10/20/17 05:12 10/20/17 05:12 10/20/17 05:12 - Medications Medications: Current Medications Docusate Sodium (Colace) 200 mg PO DAILY [facility] Enoxaparin Sodium (Lovenox) 40 mg SC DAILY@2100 [facility] PRN Reason: Protocol Last Admin: 10/19/17 21:36 Dose: 40 mg Famotidine (Pepcid) 20 mg IVP Q12 [facility] Last Admin: 10/19/17 21:36 Dose: 20 mg Home Med (Patient's Own Medication) 10 unit PO BID [facility] Last Admin: 10/19/17 18:09 Dose: 10 unit Home Med (Patient's Own Medication) 1 unit VAG QPM [facility] Last Admin: 10/19/17 18:09 Dose: 1 unit Lactated Ringer's (Lactated Ringer's) 1,000 mls @ 100 mls/hr IV .Q10H [facility] Last Admin: 10/20/17 06:34 Dose: Not Given Levothyroxine Sodium (Synthroid) 75 mcg PO DAILY@0400 [facility] Last Admin: 10/20/17 03:08 Dose: 75 mcg Ondansetron HCl (Zofran Inj) 4 mg IVP Q6 [facility] PRN Reason: Nausea/Vomiting Last Admin: 10/18/17 03:51 Dose: 4 mg Multivit/Folic Acid/Iron () 1 tab PO DAILY [facility] Last Admin: 10/19/17 08:58 Dose: 1 tab - Labs Labs: 10/20/17 04:20 10/20/17 04:20 PT 11.5 Seconds (9.8-13.1) 10/18/17 04:20 INR 1.0 (0.9-1.2) 10/18/17 04:20 APTT 28.9 Seconds (25.6-37.1) 10/18/17 04:20 - Constitutional Appears: Well, Non-toxic, No Acute Distress - Head Exam Head Exam: ATRAUMATIC, NORMAL INSPECTION, NORMOCEPHALIC - Eye Exam Eye Exam: EOMI, Normal appearance - ENT Exam ENT Exam: Normal Exam - Neck Exam Neck Exam: Full ROM - Respiratory Exam Respiratory Exam: Clear to Ausculation Bilateral, NORMAL BREATHING PATTERN - Cardiovascular Exam Cardiovascular Exam: REGULAR RHYTHM, +S1, +S2 - GI/Abdominal Exam GI & Abdominal Exam: Soft, Normal Bowel Sounds Additional comments: Non tender to palpation - Extremities Exam Extremities Exam: Normal Inspection Additional comments: No edema - Neurological Exam Neurological Exam: Alert, Awake, Oriented x3 - Psychiatric Exam Psychiatric exam: Normal Affect, Normal Mood Assessment and Plan (1) Abdominal pain Assessment & Plan: Minor, doesnt need medication to control Status: Resolved (2) Ascites Assessment & Plan: May need 2nd paracentesis, LFT's still trending up secondary to choelstasis Status: Acute (3) DVT prophylaxis Assessment & Plan: Lovenox AE hose Status: Acute (4) Ovarian hyperstimulation syndrome Status: Acute (5) Elevated troponin Status: Acute (6) Hypothyroidism Assessment & Plan: Patient had severe hypothyroid-endocrine consulted, has autoimmune thyroiditis- increased synthroid 75mcg Status: Acute - Assessment and Plan (Free Text) Assessment: Continue to observe and monitor patients LFT's, BHCG, CBC, CMP
--- NOTE | 2017-10-20 08:13 | CP.PCM.PN ---
Subjective - Date & Time of Evaluation Date of Evaluation: 10/20/17 Time of Evaluation: 08:10 - Subjective Subjective: pt doing well. no f/c, n/v/d. has appetite. feels like abd is becoming redistended. all labs noted. lft eleavted but less so than previously. Objective - Vital Signs/Intake and Output Vital Signs (last 24 hours): Temp Pulse Resp BP Pulse Ox 98.1 F 79 18 109/67 98 10/20/17 05:12 10/20/17 05:12 10/20/17 05:12 10/20/17 05:12 10/20/17 05:12 - Medications Medications: Current Medications Docusate Sodium (Colace) 200 mg PO DAILY [facility] Enoxaparin Sodium (Lovenox) 40 mg SC DAILY@2100 [facility] PRN Reason: Protocol Last Admin: 10/19/17 21:36 Dose: 40 mg Famotidine (Pepcid) 20 mg IVP Q12 [facility] Last Admin: 10/19/17 21:36 Dose: 20 mg Home Med (Patient's Own Medication) 10 unit PO BID [facility] Last Admin: 10/19/17 18:09 Dose: 10 unit Home Med (Patient's Own Medication) 1 unit VAG QPM [facility] Last Admin: 10/19/17 18:09 Dose: 1 unit Lactated Ringer's (Lactated Ringer's) 1,000 mls @ 100 mls/hr IV .Q10H [facility] Last Admin: 10/20/17 06:34 Dose: Not Given Levothyroxine Sodium (Synthroid) 75 mcg PO DAILY@0400 [facility] Last Admin: 10/20/17 03:08 Dose: 75 mcg Ondansetron HCl (Zofran Inj) 4 mg IVP Q6 PRN PRN Reason: Nausea/Vomiting Last Admin: 10/18/17 03:51 Dose: 4 mg Multivit/Folic Acid/Iron () 1 tab PO DAILY [facility] Last Admin: 10/19/17 08:58 Dose: 1 tab - Labs Labs: 10/20/17 04:20 10/20/17 04:20 PT 11.5 Seconds (9.8-13.1) 10/18/17 04:20 INR 1.0 (0.9-1.2) 10/18/17 04:20 APTT 28.9 Seconds (25.6-37.1) 10/18/17 04:20 - Constitutional Appears: Well, Non-toxic, No Acute Distress - Head Exam Head Exam: ATRAUMATIC, NORMAL INSPECTION, NORMOCEPHALIC - Eye Exam Eye Exam: EOMI, Normal appearance, PERRL Pupil Exam: NORMAL ACCOMODATION, PERRL - ENT Exam ENT Exam: Mucous Membranes Moist, Normal Exam - Neck Exam Neck Exam: Full ROM, Normal Inspection. absent: Lymphadenopathy - Respiratory Exam Respiratory Exam: Clear to Ausculation Bilateral, NORMAL BREATHING PATTERN - Cardiovascular Exam Cardiovascular Exam: REGULAR RHYTHM, +S1, +S2. absent: Murmur - GI/Abdominal Exam GI & Abdominal Exam: Distended, Soft, Normal Bowel Sounds. absent: Tenderness - Extremities Exam Extremities Exam: Full ROM, Normal Capillary Refill, Normal Inspection. absent : Joint Swelling, Pedal Edema - Back Exam Back Exam: NORMAL INSPECTION - Neurological Exam Neurological Exam: Alert, Awake, CN II-XII Intact, Normal Gait, Oriented x3 - Psychiatric Exam Psychiatric exam: Normal Affect, Normal Mood - Skin Skin Exam: Dry, Intact, Normal Color, Warm Assessment and Plan (1) Abdominal pain Status: Resolved (2) Ascites Status: Acute (3) DVT prophylaxis Status: Acute (4) Elevated troponin Status: Acute (5) Ovarian hyperstimulation syndrome Status: Acute (6) Elevated LFTs Status: Acute - Assessment and Plan (Free Text) Assessment: (1) Abdominal pain Assessment & Plan: controlled w/ meds, had 3l removed at previous paracentesis no further pain Status: Acute (2) Ascites Assessment & Plan: for paracentesis w/ ir today. labs noted. pt has been npo 3l fluid removed, pending all lab studies and c/s will re US abd today feels more distended cont LR/albumin Status: Acute (3) DVT prophylaxis Assessment & Plan: scd nad aehose lovenox Status: Acute (4) Elevated troponin Assessment & Plan: cleared by cardio, trops and echo noted Status: Acute (5) Ovarian hyperstimulation syndrome Assessment & Plan: obgyn following pt. house obgyn team feels hormones should remain. consult w/ dr liu appriciated Status: Acute (6) Elevated LFTs Assessment & Plan: trending up ?? r/t hormone therapy cont to moniotr will set up outpt GI cont fluids/albumin Status: Acute
[2017-10-20] MEDS: Prenatal Multivit/Folic Acid/Iron Tab PO SCH (10:21)
[2017-10-20] MEDS: [UNRECOGNIZED DRUG - OTHER] PO SCH ×2 (10:21→17:40)
[2017-10-20] MEDS: Albumin Human 25% (12.5 gm/50 ml) IV SCH ×2 (10:42→17:00)
--- NOTE | 2017-10-20 13:03 | CP.PCM.CON ---
History of Present Illness - History of Present Illness History of Present Illness: this patient whole is 36 years of age female I was called to see her for hyponatremia. Patient having issue she [place] and she is at the very early now patient apparently receiving hormonal therapy regarding the and also noted that she is developing ascites and she has paracentesis and 3 L with removed. And she is receiving intravenous fluid and complaining of increasing swollen of the upper extremity and the abdomen. No nausea no vomiting Review of Systems - Constitutional Constitutional: absent: Chills - Cardiovascular Cardiovascular: Edema. absent: Chest Pain, Dyspnea - Respiratory Respiratory: absent: Cough, Hemoptysis - Gastrointestinal Gastrointestinal: As Per HPI, Bloating. absent: Coffee Ground Emesis, Melena - Genitourinary Genitourinary: Nocturia - Musculoskeletal Musculoskeletal: As Per HPI, Muscle Weakness - Neurological Neurological: absent: Abnormal Movements, Confusion, Focal Weakness - Endocrine Endocrine: Fatigue - Hematologic/Lymphatic Hematologic: absent: Easy Bleeding Past Patient History - Infectious Disease Hx of Infectious Diseases: None - Past Medical History & Family History Past Medical History?: No Past Family History: Reviewed and not pertinent - Past Social History Smoking Status: Never Smoked Chewing Tobacco Use: No Cigar Use: No Alcohol: None - CARDIAC Hx Cardiac Disorders: No - PULMONARY Hx Respiratory Disorders: No - NEUROLOGICAL Hx Neurological Disorder: No - HEENT Hx HEENT Problems: No - RENAL Hx Chronic Kidney Disease: No - ENDOCRINE/METABOLIC Hx Endocrine Disorders: No - HEMATOLOGICAL/ONCOLOGICAL Hx Blood Disorders: No Hx AIDS: No Hx Human Immunodeficiency Virus (HIV): No - INTEGUMENTARY Hx Dermatological Problems: No - MUSCULOSKELETAL/RHEUMATOLOGICAL Hx Musculoskeletal Disorders: No Hx Falls: No - GASTROINTESTINAL Hx Gastrointestinal Disorders: No - GENITOURINARY/GYNECOLOGICAL Hx Genitourinary Disorders: No - PSYCHIATRIC Hx Psychophysiologic Disorder: No Hx Substance Use: No - SURGICAL HISTORY Hx Surgeries: No - ANESTHESIA Hx Anesthesia: No Hx Anesthesia Reactions: No Hx Malignant Hyperthermia: No Has any member of the family had a problem w/ anesthesia?: No Meds Allergies/Adverse Reactions: Allergies Allergy/AdvReac Type Severity Reaction Status Date / Time No Known Allergies Allergy Verified 10/14/17 17:09 - Medications Medications: Current Medications Albumin Human (Albumin Human 25% (12.5 Gm/50 Ml)) 12.5 gm IV BID [facility] Last Admin: 10/20/17 10:42 Dose: 12.5 gm Docusate Sodium (Colace) 200 mg PO DAILY [facility] Last Admin: 10/20/17 10:21 Dose: 200 mg Enoxaparin Sodium (Lovenox) 40 mg SC DAILY@2100 [facility] PRN Reason: Protocol Last Admin: 10/19/17 21:36 Dose: 40 mg Famotidine (Pepcid) 20 mg IVP Q12 [facility] Last Admin: 10/20/17 08:47 Dose: 20 mg Home Med (Patient's Own Medication) 10 unit PO BID [facility] Last Admin: 10/20/17 10:21 Dose: 10 unit Home Med (Patient's Own Medication) 1 unit VAG QPM [facility] Last Admin: 10/19/17 18:09 Dose: 1 unit Levothyroxine Sodium (Synthroid) 75 mcg PO DAILY@0400 [facility] Last Admin: 10/20/17 03:08 Dose: 75 mcg Ondansetron HCl (Zofran Inj) 4 mg IVP Q6 PRN PRN Reason: Nausea/Vomiting Last Admin: 10/20/17 08:48 Dose: 4 mg Multivit/Folic Acid/Iron () 1 tab PO DAILY [facility] Last Admin: 10/20/17 10:21 Dose: 1 tab Physical Exam - Constitutional Appears: No Acute Distress - ENT Exam ENT Exam: Mucous Membranes Moist - Neck Exam Neck exam: Negative for: Lymphadenopathy - Respiratory Exam Respiratory Exam: NORMAL BREATHING PATTERN. absent: Chest Wall Tenderness - Cardiovascular Exam Cardiovascular Exam: absent: Gallop, JVD, Rubs - GI/Abdominal Exam GI & Abdominal Exam: Distended, Normal Bowel Sounds. absent: Guarding - Extremities Exam Extremities exam: Negative for: calf tenderness - Back Exam Back exam: absent: CVA tenderness (L), CVA tenderness (R) - Neurological Exam Neurological exam: Alert - Psychiatric Exam Psychiatric exam: Normal Affect Results - Vital Signs Recent Vital Signs: Last Vital Signs Temp 97.7 F 10/20/17 12:35 Pulse 86 10/20/17 12:35 Resp 20 10/20/17 12:35 BP 123/78 10/20/17 12:35 Pulse Ox 100 10/20/17 12:35 - Labs Result Diagrams: 10/20/17 04:20 10/20/17 04:20 Labs: Laboratory Results - last 24 hr 0710/20/17 10/20/17 12:00 04:20 04:20 WBC 10.8 RBC 4.32 Hgb 12.2 Hct 35.8 MCV 83.0 MCH 28.1 MCHC 33.9 RDW 14.8 H Plt Count 351 Sodium 130 L Potassium 4.1 Chloride 102 Carbon Dioxide 23 Anion Gap 9 L BUN 15 Creatinine 0.5 L Est GFR ( Amer) > 60 Est GFR (Non-Af Amer) > 60 Random Glucose 78 Hemoglobin A1c Calcium 7.9 L Phosphorus 3.3 Magnesium 1.9 Total Bilirubin 0.3 AST 241 H ALT 386 H Alkaline Phosphatase 49 Total Protein 4.9 L Albumin 2.5 L Globulin 2.4 Albumin/Globulin Ratio 1.0 Free T4 Thyroxine (T4) 12.9 H TSH 3rd Generation 8.29 H Beta HCG, Quant Hepatitis A IgM Ab Negative Hep Bs Antigen Negative Hep B Core IgM Ab Negative Hepatitis C Antibody Negative 10/20/17 10/20/17 10/20/17 04:20 04:20 05:00 WBC RBC Hgb Hct MCV MCH MCHC RDW Plt Count Sodium Potassium Chloride Carbon Dioxide Anion Gap BUN Creatinine Est GFR ( Amer) Est GFR (Non-Af Amer) Random Glucose Hemoglobin A1c 5.1 Calcium Phosphorus Magnesium Total Bilirubin AST ALT Alkaline Phosphatase Total Protein Albumin Globulin Albumin/Globulin Ratio Free T4 1.33 Thyroxine (T4) TSH 3rd Generation Beta HCG, Quant 267.91 Hepatitis A IgM Ab Hep Bs Antigen Hep B Core IgM Ab Hepatitis C Antibody Assessment & Plan (1) Ascites Status: Acute (2) Elevated LFTs Status: Acute (3) Hyponatremia Assessment and Plan: patient has hyponatremia serum sodium in the range of 130 most likely related dilutional. Patient receiving intravenous fluid in addition she has ascites and upper extremity edema Patient admitted for related issue as noted in the primary team and [employer] abdominal ascites and abnormal liver function test however serum bilirubin normal and status post paracentesis My recommendation DC IV fluid Fluid restriction around thousand cc in 24 hours Spot urine for sodium osmolality and creatinine Status: Acute
--- NOTE | 2017-10-20 16:18 | US ---
Date of service: 10/20/2017 HISTORY: abd ascites, COMPARISON: None. TECHNIQUE: Sonographic evaluation of the abdomen. FINDINGS: LIVER: Measures 15.8 cm. Normal echogenicity of the liver parenchyma. No mass. No intrahepatic bile duct dilatation. GALLBLADDER: Unremarkable. No gallstones. COMMON BILE DUCT: Measures 3.2 mm. No stones. No dilatation. PANCREAS: Unremarkable as visualized. No mass. No ductal dilatation. RIGHT KIDNEY: Measures 9.9 x 5.6 x 4.3cm. Normal echogenicity. No calculus, mass, or hydronephrosis. LEFT KIDNEY: Measures 10.4 x 5.0 x 5.0cm. Normal echogenicity. No calculus, mass, or hydronephrosis. SPLEEN: Normal in size and contour. No mass. AORTA: Limited evaluation because of obscuring bowel gas IVC: Unremarkable. OTHER FINDINGS: Ascites surrounding the liver and spleen - present. IMPRESSION: . Ascites. Comments additional history states that the patient is . If the patient has not already had a [employer] consult, consider this
--- NOTE | 2017-10-20 16:57 | CP.PCM.CON ---
History of Present Illness - History of Present Illness History of Present Illness: hd # 6moderate ohss pt still unconfortable after paracenthesis yesterday Past Patient History - Infectious Disease Hx of Infectious Diseases: None - Past Medical History & Family History Past Medical History?: No Past Family History: Reviewed and not pertinent - Past Social History Smoking Status: Never Smoked Chewing Tobacco Use: No Cigar Use: No Alcohol: None - CARDIAC Hx Cardiac Disorders: No - PULMONARY Hx Respiratory Disorders: No - NEUROLOGICAL Hx Neurological Disorder: No - HEENT Hx HEENT Problems: No - RENAL Hx Chronic Kidney Disease: No - ENDOCRINE/METABOLIC Hx Endocrine Disorders: No - HEMATOLOGICAL/ONCOLOGICAL Hx Blood Disorders: No Hx AIDS: No Hx Human Immunodeficiency Virus (HIV): No - INTEGUMENTARY Hx Dermatological Problems: No - MUSCULOSKELETAL/RHEUMATOLOGICAL Hx Musculoskeletal Disorders: No Hx Falls: No - GASTROINTESTINAL Hx Gastrointestinal Disorders: No - GENITOURINARY/GYNECOLOGICAL Hx Genitourinary Disorders: No - PSYCHIATRIC Hx Psychophysiologic Disorder: No Hx Substance Use: No - SURGICAL HISTORY Hx Surgeries: No - ANESTHESIA Hx Anesthesia: No Hx Anesthesia Reactions: No Hx Malignant Hyperthermia: No Has any member of the family had a problem w/ anesthesia?: No Meds Allergies/Adverse Reactions: Allergies Allergy/AdvReac Type Severity Reaction Status Date / Time No Known Allergies Allergy Verified 10/14/17 17:09 - Medications Medications: Current Medications Albumin Human (Albumin Human 25% (12.5 Gm/50 Ml)) 12.5 gm IV BID [facility] Last Admin: 10/20/17 10:42 Dose: 12.5 gm Docusate Sodium (Colace) 200 mg PO DAILY [facility] Last Admin: 10/20/17 10:21 Dose: 200 mg Enoxaparin Sodium (Lovenox) 40 mg SC DAILY@2100 [facility] PRN Reason: Protocol Last Admin: 10/19/17 21:36 Dose: 40 mg Famotidine (Pepcid) 20 mg IVP Q12 [facility] Last Admin: 10/20/17 08:47 Dose: 20 mg Home Med (Patient's Own Medication) 10 unit PO BID [facility] Last Admin: 10/20/17 10:21 Dose: 10 unit Home Med (Patient's Own Medication) 1 unit VAG QPM [facility] Last Admin: 10/19/17 18:09 Dose: 1 unit Levothyroxine Sodium (Synthroid) 75 mcg PO DAILY@0400 [facility] Last Admin: 10/20/17 03:08 Dose: 75 mcg Ondansetron HCl (Zofran Inj) 4 mg IVP Q6 PRN PRN Reason: Nausea/Vomiting Last Admin: 10/20/17 08:48 Dose: 4 mg Multivit/Folic Acid/Iron () 1 tab PO DAILY [facility] Last Admin: 10/20/17 10:21 Dose: 1 tab Results - Vital Signs Recent Vital Signs: Last Vital Signs Temp 98.2 F 10/20/17 16:01 Pulse 84 10/20/17 16:01 Resp 18 10/20/17 16:01 BP 106/65 10/20/17 16:01 Pulse Ox 100 10/20/17 16:01 - Labs Result Diagrams: 10/20/17 04:20 10/20/17 04:20 Labs: Laboratory Results - last 24 hr 10/19/17 10/20/17 10/20/17 12:00 04:20 04:20 WBC 10.8 RBC 4.32 Hgb 12.2 Hct 35.8 MCV 83.0 MCH 28.1 MCHC 33.9 RDW 14.8 H Plt Count 351 Sodium 130 L Potassium 4.1 Chloride 102 Carbon Dioxide 23 Anion Gap 9 L BUN 15 Creatinine 0.5 L Est GFR ( Amer) > 60 Est GFR (Non-Af Amer) > 60 Random Glucose 78 Hemoglobin A1c Serum Osmolality Calcium 7.9 L Phosphorus 3.3 Magnesium 1.9 Total Bilirubin 0.3 AST 241 H ALT 386 H Alkaline Phosphatase 49 Total Protein 4.9 L Albumin 2.5 L Globulin 2.4 Albumin/Globulin Ratio 1.0 Free T4 Thyroxine (T4) 12.9 H TSH 3rd Generation 8.29 H Beta HCG, Quant Hepatitis C Antibody Negative 10/20/17 10/20/17 10/20/17 04:20 04:20 05:00 WBC RBC Hgb Hct MCV MCH MCHC RDW Plt Count Sodium Potassium Chloride Carbon Dioxide Anion Gap BUN Creatinine Est GFR ( Amer) Est GFR (Non-Af Amer) Random Glucose Hemoglobin A1c 5.1 Serum Osmolality Calcium Phosphorus Magnesium Total Bilirubin AST ALT Alkaline Phosphatase Total Protein Albumin Globulin Albumin/Globulin Ratio Free T4 1.33 Thyroxine (T4) TSH 3rd Generation Beta HCG, Quant 267.91 Hepatitis C Antibody 10/20/17 12:18 WBC RBC Hgb Hct MCV MCH MCHC RDW Plt Count Sodium Potassium Chloride Carbon Dioxide Anion Gap BUN Creatinine Est GFR ( Amer) Est GFR (Non-Af Amer) Random Glucose Hemoglobin A1c Serum Osmolality 278 Calcium Phosphorus Magnesium Total Bilirubin AST ALT Alkaline Phosphatase Total Protein Albumin Globulin Albumin/Globulin Ratio Free T4 Thyroxine (T4) TSH 3rd Generation Beta HCG, Quant Hepatitis C Antibody Assessment & Plan - Assessment and Plan (Free Text) Assessment: renal consult noted will d/c ivf fluids to address hyponatremia Plan: reassess in am for possible repeat paracenthesis
[2017-10-20] MEDS: [UNRECOGNIZED DRUG - OTHER] VAG SCH (17:49)
--- NOTE | 2017-10-20 21:00 | CP.PCM.PN ---
Subjective - Date & Time of Evaluation Date of Evaluation: 10/20/17 Time of Evaluation: 09:00 - Subjective Subjective: Pt is seen and examined. No acute event overnight. Pt have no complain as per today. She state that her abdomen is less swollen and not as tender. Pt denies of SOb, chest pain, constipation, diarrhea, dysuria or polyuria. Pt have no complain as per today. Objective - Vital Signs/Intake and Output Vital Signs (last 24 hours): Temp Pulse Resp BP Pulse Ox 98.0 F 85 20 124/79 100 10/20/17 20:39 10/20/17 20:39 10/20/17 20:39 10/20/17 20:39 10/20/17 20:39 - Medications Medications: Current Medications Albumin Human (Albumin Human 25% (12.5 Gm/50 Ml)) 12.5 gm IV BID [facility] Last Admin: 10/20/17 17:00 Dose: 12.5 gm Docusate Sodium (Colace) 200 mg PO DAILY [facility] Last Admin: 10/20/17 10:21 Dose: 200 mg Enoxaparin Sodium (Lovenox) 40 mg SC DAILY@2100 [facility] PRN Reason: Protocol Last Admin: 10/19/17 21:36 Dose: 40 mg Famotidine (Pepcid) 20 mg IVP Q12 [facility] Last Admin: 10/20/17 08:47 Dose: 20 mg Home Med (Patient's Own Medication) 10 unit PO BID [facility] Last Admin: 10/20/17 17:40 Dose: 10 unit Home Med (Patient's Own Medication) 1 unit VAG QPM [facility] Last Admin: 10/20/17 17:49 Dose: 1 unit Levothyroxine Sodium (Synthroid) 75 mcg PO DAILY@0400 [facility] Last Admin: 10/20/17 03:08 Dose: 75 mcg Ondansetron HCl (Zofran Inj) 4 mg IVP Q6 PRN PRN Reason: Nausea/Vomiting Last Admin: 10/20/17 08:48 Dose: 4 mg Multivit/Folic Acid/Iron () 1 tab PO DAILY [facility] Last Admin: 10/20/17 10:21 Dose: 1 tab - Labs Labs: 10/20/17 04:20 10/20/17 04:20 PT 11.5 Seconds (9.8-13.1) 10/18/17 04:20 INR 1.0 (0.9-1.2) 10/18/17 04:20 APTT 28.9 Seconds (25.6-37.1) 10/18/17 04:20 - Constitutional Appears: Well, Non-toxic, No Acute Distress - Head Exam Head Exam: ATRAUMATIC, NORMAL INSPECTION - Eye Exam Eye Exam: EOMI, Normal appearance, PERRL Pupil Exam: NORMAL ACCOMODATION, PERRL - ENT Exam ENT Exam: Mucous Membranes Moist, Normal Exam - Neck Exam Neck Exam: Full ROM, Normal Inspection - Respiratory Exam Respiratory Exam: Clear to Ausculation Bilateral, NORMAL BREATHING PATTERN - Cardiovascular Exam Cardiovascular Exam: REGULAR RHYTHM, +S1, +S2 - GI/Abdominal Exam GI & Abdominal Exam: Distended, Soft, Normal Bowel Sounds - Extremities Exam Extremities Exam: Full ROM, Normal Capillary Refill, Normal Inspection - Back Exam Back Exam: NORMAL INSPECTION - Neurological Exam Neurological Exam: Alert, Awake, Oriented x3 - Psychiatric Exam Psychiatric exam: Normal Affect, Normal Mood - Skin Skin Exam: Dry, Intact, Normal Color, Warm Assessment and Plan - Assessment and Plan (Free Text) Assessment: Assessment Pt is 36 yo f s/p IVF Tx done in [place], presented with abd pain and distention, dyspnea and increase trop. Low BHCG BHCG of 267.91 F/U BHCG in 48 h Abdominal Pain Abd pain is controlled, no medication needed Ascites U/S + ascites and possible 2nd paracentesis F/U ASt/ALT Dvt prophylaxis Lovenox SCD
[2017-10-20] MEDS: Enoxaparin 40 mg Syringe SC SCH (21:34)
--- NOTE | 2017-10-20 23:54 | PN ---
Copied To: Sommer Chawla MD Attending MD: Sommer Chawla MD DATE: 10/20/2017 ENDO FOLLOWUP NOTE LOCATIONS: Room 408 SUBJECTIVE: This is a 36-year-old female with intrauterine and recent infertility treatments undertaken in [place] with supervening development of massive ascites and underwent paracentesis procedure as noted thereof. She is also being followed closely for metabolic management because of recent hypothyroidism as noted thereof. Her latest thyroid studies showed a T4 of 12.4 and a repeat one of 12.9 mcg/dL which is elevated and expected with intercurrent uterine and elevation of thyroxine binding globulin levels. Her free T4 is normal at 1.33 with TSH initially of 12 and a repeat level of 8.29. Her beta hCG is 267.91. Her liver transaminases are elevated as noted. The GGTP level which I ordered is still pending at this time. LABORATORY DATA: Her latest chemistries showed BUN of 15, sodium 130, potassium 4.1, chloride 102, CO2 of 23, glucose 78, and creatinine 0.5. ASSESSMENT AND PLAN: So, at this time, we will continue the levothyroxine which was modified to a higher dose of 75 mcg once daily to be started this morning as ordered. We will obtain serial chemistries and supplement accordingly as needed. We will also obtain thyroid antibodies to confirm and/or indicate the presence of underlying thyroid autoimmunity. We will concur with the present medical and gynecologic management at this time. We will follow. Sommer Chawla MD
[2017-10-21] MEDS: Levothyroxine 75 MCG TAB PO SCH (03:17)
[2017-10-21 06:24] LABS: BASO # 0.1 K/uL (0.0-0.2); BASO % 0.5 % (0.0-2.0); EOS # 0.1 K/uL (0.0-0.7); EOS % 1.1 % (0.0-4.0); HEMOGLOBIN 11.9 g/dL (12.0-16.0); LYMPH # 2.4 K/uL (1.0-4.3); LYMPH % 20.7 % (20.0-40.0); MEAN CELL VOLUME 82.8 fl (81.0-99.0); MEAN CORPUSCULAR HEMOGLOBIN 27.9 pg (27.0-31.0); MEAN CORPUSCULAR HGB CONC 33.6 g/dL (33.0-37.0); MONO # 1.2 K/uL (0.0-0.8); MONO % 10.1 % (0.0-10.0); NEUT # 7.8 K/uL (1.8-7.0); NEUT % 67.6 % (50.0-75.0); RBC 4.25 Mil/uL (3.80-5.20); RED CELL DISTRIBUTION WIDTH 14.9 % (11.5-14.5); WHITE BLOOD COUNT 11.5 K/uL (4.8-10.8)
[2017-10-21 07:08] LABS: ALB/GLOB RATIO 1.1 (1.0-2.1); ALBUMIN 2.8 g/dL (3.5-5.0); ALT/SGPT 498 U/L (9-52); AST/SGOT 302 U/L (14-36); BLOOD UREA NITROGEN 14 mg/dl (7-17); CALCIUM 8.2 mg/dL (8.4-10.2); GFR AFRICAN-AMERICAN > 60; GFR NON-AFRICAN AMERICAN > 60
[2017-10-21] MEDS: Albumin Human 25% (12.5 gm/50 ml) IV SCH ×2 (08:32→16:05)
[2017-10-21] MEDS: Prenatal Multivit/Folic Acid/Iron Tab PO SCH (08:33)
[2017-10-21] MEDS: [UNRECOGNIZED DRUG - OTHER] PO SCH ×2 (08:36→16:05)
--- NOTE | 2017-10-21 08:39 | CP.PCM.PN ---
Subjective - Date & Time of Evaluation Date of Evaluation: 10/21/17 Time of Evaluation: 08:37 - Subjective Subjective: pt sitting up in bed comfortable. no f/c, n/v/d. no cp, dyspnea, paliptaitons, no abd pain. states feels like ascites is decr. bhcg noted, abd us noted. all consults appriciated. Objective - Vital Signs/Intake and Output Vital Signs (last 24 hours): Temp Pulse Resp BP Pulse Ox 98.4 F 84 20 122/76 97 10/21/17 08:12 10/21/17 08:12 10/21/17 08:12 10/21/17 08:12 10/21/17 08:12 - Medications Medications: Current Medications Albumin Human (Albumin Human 25% (12.5 Gm/50 Ml)) 12.5 gm IV BID [facility] Last Admin: 10/20/17 17:00 Dose: 12.5 gm Docusate Sodium (Colace) 200 mg PO DAILY [facility] Last Admin: 10/20/17 10:21 Dose: 200 mg Enoxaparin Sodium (Lovenox) 40 mg SC DAILY@2100 [facility] PRN Reason: Protocol Last Admin: 10/20/17 21:34 Dose: 40 mg Famotidine (Pepcid) 20 mg IVP Q12 [facility] Last Admin: 10/20/17 21:37 Dose: Not Given Home Med (Patient's Own Medication) 10 unit PO BID [facility] Last Admin: 10/20/17 17:40 Dose: 10 unit Home Med (Patient's Own Medication) 1 unit VAG QPM [facility] Last Admin: 10/20/17 17:49 Dose: 1 unit Levothyroxine Sodium (Synthroid) 75 mcg PO DAILY@0400 [facility] Last Admin: 10/21/17 03:17 Dose: 75 mcg Ondansetron HCl (Zofran Inj) 4 mg IVP Q6 PRN PRN Reason: Nausea/Vomiting Last Admin: 10/20/17 08:48 Dose: 4 mg Multivit/Folic Acid/Iron () 1 tab PO DAILY [facility] Last Admin: 10/20/17 10:21 Dose: 1 tab - Labs Labs: 10/21/17 05:30 10/21/17 05:30 PT 11.5 Seconds (9.8-13.1) 10/18/17 04:20 INR 1.0 (0.9-1.2) 10/18/17 04:20 APTT 28.9 Seconds (25.6-37.1) 10/18/17 04:20 - Constitutional Appears: Well, Non-toxic, No Acute Distress - Head Exam Head Exam: ATRAUMATIC, NORMAL INSPECTION, NORMOCEPHALIC - Eye Exam Eye Exam: EOMI, Normal appearance, PERRL Pupil Exam: NORMAL ACCOMODATION, PERRL - ENT Exam ENT Exam: Mucous Membranes Moist, Normal Exam - Neck Exam Neck Exam: Full ROM, Normal Inspection. absent: Lymphadenopathy - Respiratory Exam Respiratory Exam: Clear to Ausculation Bilateral, NORMAL BREATHING PATTERN - Cardiovascular Exam Cardiovascular Exam: REGULAR RHYTHM, RRR, +S1, +S2. absent: Murmur - GI/Abdominal Exam GI & Abdominal Exam: Distended, Soft, Normal Bowel Sounds. absent: Tenderness Additional comments: improving - Extremities Exam Extremities Exam: Full ROM, Normal Capillary Refill, Normal Inspection. absent : Joint Swelling, Pedal Edema - Back Exam Back Exam: NORMAL INSPECTION - Neurological Exam Neurological Exam: Alert, Awake, CN II-XII Intact, Normal Gait, Oriented x3 - Psychiatric Exam Psychiatric exam: Normal Affect, Normal Mood - Skin Skin Exam: Dry, Intact, Normal Color, Warm Assessment and Plan (1) Abdominal pain Status: Resolved (2) Ascites Status: Acute (3) DVT prophylaxis Status: Acute (4) Elevated troponin Status: Acute (5) Ovarian hyperstimulation syndrome Status: Acute (6) Elevated LFTs Status: Acute - Assessment and Plan (Free Text) Assessment: (1) Abdominal pain Assessment & Plan: controlled w/ meds, had 3l removed at previous paracentesis-all studies noted no further pain Status: Acute (2) Ascites Assessment & Plan: for paracentesis w/ ir today. labs noted. pt has been npo 3l fluid removed, pending all lab studies and c/s will re US abd -resultes noted, pt feels better albumin Status: Acute (3) DVT prophylaxis Assessment & Plan: scd nad aehose lovenox Status: Acute (4) Elevated troponin Assessment & Plan: cleared by cardio, trops and echo noted Status: Acute (5) Ovarian hyperstimulation syndrome Assessment & Plan: obgyn following pt. house obgyn team feels hormones should remain. consult w/ dr liu appriciated Status: Acute (6) Elevated LFTs Assessment & Plan: trending up ?? r/t hormone therapy cont to moniotr GI /albumin hep panel negative Status: Acute
--- NOTE | 2017-10-21 09:38 | CP.PCM.PN ---
Subjective - Date & Time of Evaluation Date of Evaluation: 10/21/17 Time of Evaluation: 09:34 - Subjective Subjective: patient appears to be comfortable No vomiting no diarrhea Objective - Vital Signs/Intake and Output Vital Signs (last 24 hours): Temp Pulse Resp BP Pulse Ox 98.4 F 84 20 122/76 97 10/21/17 08:12 10/21/17 08:12 10/21/17 08:12 10/21/17 08:12 10/21/17 08:12 - Medications Medications: Current Medications Albumin Human (Albumin Human 25% (12.5 Gm/50 Ml)) 12.[address] [facility] Last Admin: 10/21/17 08:32 Dose: 12.5 gm Docusate Sodium (Colace) [address] [facility] Last Admin: 10/21/17 08:35 Dose: 200 mg Enoxaparin Sodium (Lovenox) 40 mg SC DAILY@2100 [facility] PRN Reason: Protocol Last Admin: 10/20/17 21:34 Dose: 40 mg Famotidine (Pepcid) [address] [facility] Last Admin: 10/21/17 09:03 Dose: 20 mg Home Med (Patient's Own Medication) [address] [facility] Last Admin: 10/21/17 08:36 Dose: 10 unit Home Med (Patient's Own Medication) [address] [facility] Last Admin: 10/20/17 17:49 Dose: 1 unit Levothyroxine Sodium (Synthroid) 75 mcg PO DAILY@0400 [facility] Last Admin: 10/21/17 03:17 Dose: 75 mcg Ondansetron HCl (Zofran Inj) 4 mg IVP Q6 PRN PRN Reason: Nausea/Vomiting Last Admin: 10/20/17 08:48 Dose: 4 mg Multivit/Folic Acid/Iron () [address] [facility] Last Admin: 10/21/17 08:33 Dose: 1 tab - Labs Labs: 10/21/17 05:30 10/21/17 05:30 PT 11.5 Seconds (9.8-13.1) 10/18/17 04:20 INR 1.0 (0.9-1.2) 10/18/17 04:20 APTT 28.9 Seconds (25.6-37.1) 10/18/17 04:20 - Constitutional Appears: No Acute Distress - ENT Exam ENT Exam: Mucous Membranes Moist - Neck Exam Neck Exam: absent: Lymphadenopathy - Respiratory Exam Respiratory Exam: NORMAL BREATHING PATTERN. absent: Rales - Cardiovascular Exam Cardiovascular Exam: REGULAR RHYTHM. absent: Gallop, JVD, Rubs - GI/Abdominal Exam GI & Abdominal Exam: Soft, Normal Bowel Sounds Additional comments: ascites - Extremities Exam Extremities Exam: Pedal Edema. absent: Calf Tenderness - Back Exam Back Exam: absent: CVA tenderness (L), CVA tenderness (R) - Neurological Exam Neurological Exam: Alert - Psychiatric Exam Psychiatric exam: Normal Affect - Skin Skin Exam: absent: Cyanosis Assessment and Plan (1) Ascites Status: Acute (2) Elevated LFTs Status: Acute (3) Hyponatremia Assessment & Plan: hyponatremia Urine finding osmolality and urine sodium consistent with SIADH serum sodium came up to 131 related complication Abdominal ascites Abnormal liver function test Recommendation and plan Continue fluid restriction about 1000 mL Daily weight As per primary team for the complications related issue Hypothyroidism Status: Acute
[2017-10-21 13:39] LABS: INR 0.9; PROTHROMBIN TIME 10.3 Seconds (9.8-13.1)
[2017-10-21] MEDS: [UNRECOGNIZED DRUG - OTHER] VAG SCH (17:24)
--- NOTE | 2017-10-21 18:44 | CP.PCM.PN ---
Subjective - Date & Time of Evaluation Date of Evaluation: 10/21/17 Time of Evaluation: 18:00 - Subjective Subjective: Pt is a 36 yo f S/P IVF tx done in [place] 10/06/17 currently due tx. with Hx of ovarian Hyperstimulation syndrome. Pt is seen and examined at bedsite. Pt is lying comfortable in bed with no acute distress. She have minimal abd pain, and constipation in morning but have resolved with colace. Pt have no other symptoms right now, denies Headache, chest pain, SOB, abd pain, disuria, polyuria. Pt denies any discharge or vaginal bleeding. Objective - Vital Signs/Intake and Output Vital Signs (last 24 hours): Temp Pulse Resp BP Pulse Ox 97.8 F 87 20 114/72 100 10/21/17 15:49 10/21/17 15:49 10/21/17 15:49 10/21/17 15:49 10/21/17 15:49 - Medications Medications: Current Medications Albumin Human (Albumin Human 25% (12.5 Gm/50 Ml)) 12.5 gm IV BID [facility] Last Admin: 10/21/17 16:05 Dose: 12.5 gm Docusate Sodium (Colace) 200 mg PO DAILY [facility] Last Admin: 10/21/17 08:35 Dose: 200 mg Enoxaparin Sodium (Lovenox) 40 mg SC DAILY@2100 [facility] PRN Reason: Protocol Last Admin: 10/20/17 21:34 Dose: 40 mg Famotidine (Pepcid) 20 mg IVP Q12 [facility] Last Admin: 10/21/17 09:03 Dose: 20 mg Home Med (Patient's Own Medication) 10 unit PO BID [facility] Last Admin: 10/21/17 16:05 Dose: 10 unit Home Med (Patient's Own Medication) 1 unit VAG QPM [facility] Last Admin: 10/21/17 17:24 Dose: 1 unit Levothyroxine Sodium (Synthroid) 75 mcg PO DAILY@0400 [facility] Last Admin: 10/21/17 03:17 Dose: 75 mcg Ondansetron HCl (Zofran Inj) 4 mg IVP Q6 PRN PRN Reason: Nausea/Vomiting Last Admin: 10/20/17 08:48 Dose: 4 mg Multivit/Folic Acid/Iron () 1 tab PO DAILY [facility] Last Admin: 10/21/17 08:33 Dose: 1 tab - Labs Labs: 10/21/17 05:30 10/21/17 05:30 PT 10.3 Seconds (9.8-13.1) 10/21/17 11:39 INR 0.9 10/21/17 11:39 APTT 28.9 Seconds (25.6-37.1) 10/18/17 04:20 - Constitutional Appears: Well, Non-toxic, No Acute Distress - Head Exam Head Exam: ATRAUMATIC, NORMAL INSPECTION, NORMOCEPHALIC - Eye Exam Eye Exam: EOMI, Normal appearance, PERRL Pupil Exam: NORMAL ACCOMODATION, PERRL - ENT Exam ENT Exam: Mucous Membranes Moist, Normal Exam - Neck Exam Neck Exam: Full ROM, Normal Inspection - Respiratory Exam Respiratory Exam: Clear to Ausculation Bilateral, NORMAL BREATHING PATTERN - Cardiovascular Exam Cardiovascular Exam: REGULAR RHYTHM, +S1, +S2 - GI/Abdominal Exam GI & Abdominal Exam: Distended, Soft, Normal Bowel Sounds. absent: Tenderness - Extremities Exam Extremities Exam: Full ROM - Back Exam Back Exam: NORMAL INSPECTION - Neurological Exam Neurological Exam: Alert, Awake, Oriented x3 - Psychiatric Exam Psychiatric exam: Normal Affect, Normal Mood - Skin Skin Exam: Dry, Normal Color, Warm Assessment and Plan - Assessment and Plan (Free Text) Assessment: Assessment: Assessment Pt is 36 yo f s/p IVF Tx done in [place], presented with abd pain and distention, dyspnea and increase trop. Low BHCG BHCG of 267.91 F/U BHCG result on 05/27/17 Abdominal Pain Abd pain is controlled, no medication needed Ascites U/S + ascites and possible 2nd paracentesis AST/ALT trending up due to hormone therapy? Dvt prophylaxis Lovenox SCD
[2017-10-21] MEDS: Enoxaparin 40 mg Syringe SC SCH (21:34)
[2017-10-21 21:53] LABS: GAMMA GLUTAMYL TRANSPEPTIDASE 83 U/L (8-78)
--- NOTE | 2017-10-21 22:24 | PN ---
Copied To: Sommer Chawla MD Attending MD: Sommer Chawla MD DATE: 10/21/2017 ENDO FOLLOWUP NOTE LOCATION: Room 408 SUBJECTIVE: This is a 36-year-old female with recent admission for diffuse abdominal pain and was evaluated to have massive ascites related to recent infertility treatments and supervening development of the so-called ovarian hyperstimulation syndrome as noted thereof. She is being followed closely now for metabolic management also because of recent hypothyroidism as noted thereof. LABORATORY DATA: Her latest chemistry showed BUN of 14, sodium 132, potassium 4.6, chloride 100, CO2 of 26, glucose 80, and creatinine 0.6. Her liver transaminases are quite elevated at this time and the repeat AST is 302 with an ALT of 498. Her thyroid studies showed T4 of 12.9 with a TSH of 8.29 and a free T4 of 1.33. ASSESSMENT AND PLAN: So, at this time, we will continue the levothyroxine given as 75 mcg daily as ordered. We will titrate incrementally as indicated to optimize metabolic control. We will obtain serial chemistries and supplement accordingly as needed. We will follow. Sommer Chawla MD
--- NOTE | 2017-10-22 04:10 | CON ---
Copied To: Chase Sheets MD/ PhD Attending MD: Chase Sheets MD/ PhD DATE: 10/19/2017 REFERRING PHYSICIAN: Ran Nascimento DPM. REASON FOR CONSULTATION: Ascites. HISTORY OF PRESENT ILLNESS: This is a pleasant 36-year-old female essentially who had IVF done as well and now comes in with abdominal pain, and distention and ascites. The patient is actually feeling better after paracentesis. No fevers, no chills. No sick contacts. Currently lying in bed comfortable, in no apparent distress. PAST MEDICAL HISTORY: As above. PAST SURGICAL HISTORY: As above. MEDICATIONS: Have been reviewed. REVIEW OF SYSTEMS: All other systems have been reviewed and negative apart from the HPI. PHYSICAL EXAMINATION: VITAL SIGNS: Here in the hospital are grossly unremarkable. GENERAL: A pleasant, young middle-aged female, lying in bed comfortably, in no apparent distress. HEENT: Head is normocephalic and atraumatic. Eyes, pupils are equally reactive to light bilaterally. No conjunctival pallor or icterus. NECK: Supple. Normal range of motion. No lymphadenopathy appreciated. LUNGS: Coarse breath sounds bilaterally. HEART: S1 and S2, regular rate and rhythm. No murmurs appreciated. ABDOMEN: Soft, distended. Some fluid present. No rebound. No guarding. RECTAL: Deferred. EXTREMITIES: Pulses present bilaterally. SKIN: Warm, dry, and intact. NEUROLOGIC: A and O x3. LABORATORY DATA: Labs and radiology have been reviewed. WBC is 12.2, sodium 130, platelet count is 380. AST and ALT 157/164. Alk phos is normal. Bilirubin is normal as well. Ultrasound shows ascites, normal liver. ASSESSMENT AND PLAN: This is a 36-year-old female with new-onset ascites after implantation and hormone injection. This is more likely ovarian hyperstimulation syndrome which supportive care is indicated. From gastroenterology standpoint, check hepatitis panel A, B and C as long as the INR is not elevated, the ALT is abnormal likely secondary to hormones and estrogen. Recommend [employer] input. We will follow the patient with you. Thank you for the consult. Chase Sheets MD/ PhD : Ran Nascimento DPM
[2017-10-22] MEDS: Levothyroxine 75 MCG TAB PO SCH (04:28)
[2017-10-22 05:39] LABS: BASO # 0.1 K/uL (0.0-0.2); BASO % 0.9 % (0.0-2.0); EOS # 0.2 K/uL (0.0-0.7); EOS % 1.8 % (0.0-4.0); HEMOGLOBIN 10.8 g/dL (12.0-16.0); LYMPH # 2.7 K/uL (1.0-4.3); LYMPH % 24.4 % (20.0-40.0); MEAN CELL VOLUME 83.7 fl (81.0-99.0); MEAN CORPUSCULAR HGB CONC 33.5 g/dL (33.0-37.0); MEAN PLATELET VOLUME 8.1 fl (7.2-11.7); MONO # 0.9 K/uL (0.0-0.8); MONO % 8.3 % (0.0-10.0); NEUT # 7.2 K/uL (1.8-7.0); NEUT % 64.6 % (50.0-75.0); RBC 3.84 Mil/uL (3.80-5.20); RED CELL DISTRIBUTION WIDTH 14.9 % (11.5-14.5); WHITE BLOOD COUNT 11.1 K/uL (4.8-10.8)
[2017-10-22 05:49] LABS: ALB/GLOB RATIO 1.3 (1.0-2.1); ALBUMIN 2.9 g/dL (3.5-5.0); ALT/SGPT 403 U/L (9-52); AST/SGOT 182 U/L (14-36); BLOOD UREA NITROGEN 14 mg/dl (7-17); CALCIUM 8.1 mg/dL (8.4-10.2); GFR AFRICAN-AMERICAN > 60; GFR NON-AFRICAN AMERICAN > 60
[2017-10-22] MEDS: Prenatal Multivit/Folic Acid/Iron Tab PO SCH (08:19)
[2017-10-22] MEDS: Albumin Human 25% (12.5 gm/50 ml) IV SCH (08:19)
[2017-10-22] MEDS: [UNRECOGNIZED DRUG - OTHER] PO SCH ×2 (08:19→08:20)
--- NOTE | 2017-10-22 11:42 | CP.PCM.PN ---
Subjective - Date & Time of Evaluation Date of Evaluation: 10/22/17 Time of Evaluation: 11:42 - Subjective Subjective: patient appeared to be comfortable and not in any distress Vital signs stable Objective - Vital Signs/Intake and Output Vital Signs (last 24 hours): Temp Pulse Resp BP Pulse Ox 97.9 F 88 19 120/72 97 10/22/17 08:03 10/22/17 08:03 10/22/17 08:03 10/22/17 08:03 10/22/17 08:03 - Medications Medications: Current Medications Docusate Sodium (Colace) 200 mg PO DAILY [facility] Last Admin: 10/22/17 08:19 Dose: 200 mg Enoxaparin Sodium (Lovenox) 40 mg SC DAILY@2100 [facility] PRN Reason: Protocol Last Admin: 10/21/17 21:34 Dose: 40 mg Famotidine (Pepcid) 20 mg IVP Q12 [facility] Last Admin: 10/22/17 08:21 Dose: Not Given Home Med (Patient's Own Medication) 10 unit PO BID [facility] Last Admin: 10/22/17 08:20 Dose: 10 unit Home Med (Patient's Own Medication) 1 unit VAG QPM [facility] Last Admin: 10/21/17 17:24 Dose: 1 unit Levothyroxine Sodium (Synthroid) 75 mcg PO DAILY@0400 [facility] Last Admin: 10/22/17 04:28 Dose: 75 mcg Ondansetron HCl (Zofran Inj) 4 mg IVP Q6 PRN PRN Reason: Nausea/Vomiting Last Admin: 10/20/17 08:48 Dose: 4 mg Multivit/Folic Acid/Iron () 1 tab PO DAILY [facility] Last Admin: 10/22/17 08:19 Dose: 1 tab - Labs Labs: 10/22/17 05:23 10/22/17 05:23 PT 10.3 Seconds (9.8-13.1) 10/21/17 11:39 INR 0.9 10/21/17 11:39 APTT 28.9 Seconds (25.6-37.1) 10/18/17 04:20 - Constitutional Appears: No Acute Distress - ENT Exam ENT Exam: Mucous Membranes Moist - Neck Exam Neck Exam: absent: Lymphadenopathy - Respiratory Exam Respiratory Exam: NORMAL BREATHING PATTERN. absent: Chest Wall Tenderness - Cardiovascular Exam Cardiovascular Exam: REGULAR RHYTHM. absent: Gallop, JVD - GI/Abdominal Exam GI & Abdominal Exam: Soft, Normal Bowel Sounds - Extremities Exam Extremities Exam: absent: Calf Tenderness - Back Exam Back Exam: absent: CVA tenderness (L), CVA tenderness (R) - Neurological Exam Neurological Exam: Alert - Psychiatric Exam Psychiatric exam: Normal Affect - Skin Skin Exam: absent: Cyanosis Assessment and Plan (1) Ascites Status: Acute (2) Elevated LFTs Status: Acute (3) Hyponatremia Assessment & Plan: ovarian Hyperstimulation syndrome. hyponatremia. Getting worse serum sodium going down 128 abdominal ascites Leg edema I discuss the issue of hyponatremia with the front office manager front office manager is not comfortable with the fluid restriction We will give sodium chloride as discussed together 1 tablet 3 times a day and he stated he will follow-up as of patient Also Samsca has been discussed to be given however because of her early not given. Status: Acute
--- NOTE | 2017-10-22 13:06 | CP.PCM.DIS ---
Provider - Provider Date of Admission: 10/16/17 13:45 Attending physician: Jeromy Madison MD Time Spent in preparation of Discharge (in minutes): 20 Diagnosis - Discharge Diagnosis (1) Abdominal pain Status: Resolved (2) Ascites Status: Acute (3) DVT prophylaxis Status: Acute (4) Elevated troponin Status: Acute (5) Ovarian hyperstimulation syndrome Status: Acute (6) Elevated LFTs Status: Acute Hospital Course - Lab Results Lab Results: Micro Results 10/18/17 13:50 Body Fluid - Ascites Fluid Gram Stain - Final 10/18/17 13:50 Body Fluid - Ascites Fluid Body Fluid Culture - Final NO GROWTH AFTER 4 DAYS 10/18/17 13:50 Ascitic Fluid Anaerobic Culture - Final NO ANAEROBES ISOLATED. 10/18/17 13:50 Other: Please Indicate Fungal Culture - Preliminary Most Recent Lab Values WBC 11.1 K/uL (4.8-10.8) H 10/22/17 05:23 RBC 3.84 Mil/uL (3.80-5.20) 10/22/17 05:23 Hgb 10.8 g/dL (12.0-16.0) L 10/22/17 05:23 Hct 32.1 % (34.0-47.0) L 10/22/17 05:23 MCV 83.7 fl (81.0-99.0) 10/22/17 05:23 MCH 28.0 pg (27.0-31.0) 10/22/17 05:23 MCHC 33.5 g/dL (33.0-37.0) 10/22/17 05:23 RDW 14.9 % (11.5-14.5) H 10/22/17 05:23 Plt Count 371 K/uL (130-400) 10/22/17 05:23 MPV 8.1 fl (7.2-11.7) 10/22/17 05:23 Neut % (Auto) 64.6 % (50.0-75.0) 10/22/17 05:23 Lymph % (Auto) 24.4 % (20.0-40.0) 10/22/17 05:23 [place] % (Auto) 8.3 % (0.0-10.0) 10/22/17 05:23 Eos % (Auto) 1.8 % (0.0-4.0) 10/22/17 05:23 Baso % (Auto) 0.9 % (0.0-2.0) 10/22/17 05:23 Neut # (Auto) 7.2 K/uL (1.8-7.0) H 10/22/17 05:23 Lymph # (Auto) 2.7 K/uL (1.0-4.3) 10/22/17 05:23 [place] # (Auto) 0.9 K/uL (0.0-0.8) H 10/22/17 05:23 Eos # (Auto) 0.2 K/uL (0.0-0.7) 10/22/17 05:23 Baso # (Auto) 0.1 K/uL (0.0-0.2) 10/22/17 05:23 Neutrophils % (Manual) 81 % (42-75) H 10/14/17 17:34 Band Neutrophils % 4 % (0-2) H 10/14/17 17:34 Lymphocytes % (Manual) 10 % (20-50) L 10/14/17 17:34 Monocytes % (Manual) 5 % (0-10) 10/14/17 17:34 Platelet Estimate Normal (NORMAL) 10/14/17 17:34 Hypochromasia (manual) Slight 10/14/17 17:34 Microcytosis (manual) Slight 10/14/17 17:34 PT 10.3 Seconds (9.8-13.1) 10/21/17 11:39 INR 0.9 10/21/17 11:39 APTT 28.9 Seconds (25.6-37.1) 10/18/17 04:20 Sodium 128 mmol/l (132-148) L 10/22/17 05:23 Potassium 3.9 MMOL/L (3.6-5.0) 10/22/17 05:23 Chloride 102 mmol/L (98-107) 10/22/17 05:23 Carbon Dioxide 24 mmol/L (22-30) 10/22/17 05:23 Anion Gap 6 (10-20) L 10/22/17 05:23 BUN 14 mg/dl (7-17) 10/22/17 05:23 Creatinine 0.6 mg/dl (0.7-1.2) L 10/22/17 05:23 Est GFR ( Amer) > 60 10/22/17 05:23 Est GFR (Non-Af Amer) > 60 10/22/17 05:23 Random Glucose 82 mg/dL (65-105) 10/22/17 05:23 Hemoglobin A1c 5.1 % (4.2-6.5) 10/20/17 04:20 Serum Osmolality 278 mosm/kg (272-300) 10/20/17 12:18 Lactic Acid 1.5 MMOL/L (0.7-2.1) 10/14/17 22:52 Calcium 8.1 mg/dL (8.4-10.2) L 10/22/17 05:23 Phosphorus 3.7 mg/dl (2.5-4.5) 10/21/17 05:30 Magnesium 2.0 MG/DL (1.6-2.3) 10/21/17 05:30 Total Bilirubin 0.3 mg/dl (0.2-1.3) 10/22/17 05:23 GGT 83 U/L (8-78) H 10/20/17 04:20 AST 182 U/L (14-36) H D 10/22/17 05:23 ALT 403 U/L (9-52) H 10/22/17 05:23 Alkaline Phosphatase 53 U/L (38-126) 10/22/17 05:23 CK-MB (Mass) 0.93 ng/mL (0.0-3.38) 10/15/17 07:00 Troponin I 0.1370 ng/mL (0.00-0.120) H* 10/15/17 07:00 NT-Pro-B Natriuret Pep 70.2 pg/ml (0-450) 10/14/17 18:59 Total Protein 5.2 G/DL (6.3-8.2) L 10/22/17 05:23 Albumin 2.9 g/dL (3.5-5.0) L 10/22/17 05:23 Globulin 2.3 gm/dL (2.2-3.9) 10/22/17 05:23 Albumin/Globulin Ratio 1.3 (1.0-2.1) 10/22/17 05:23 Lipase 97 U/L (23-300) 10/18/17 13:14 Free T4 1.33 ng/dL (0.78-2.19) 10/20/17 04:20 Thyroxine (T4) 12.9 ug/dl (5.5-11.0) H 10/20/17 04:20 Total T3 0.922 nmol/L (1.49-2.60) L 10/19/17 12:00 TSH 3rd Generation 8.29 mIU/ML (0.46-4.68) H 10/20/17 04:20 Serum HCG, Qual Positive (NEGATIVE) 10/17/17 05:30 Beta HCG, Quant 473.47 mIU/mL 10/22/17 08:39 Urine Color Rina (YELLOW) 10/14/17 17:50 Urine Clarity Cloudy (Clear) 10/14/17 17:50 Urine pH 5.0 (5.0-8.0) 10/14/17 17:50 Ur Specific [place] 1.029 (1.003-1.030) 10/14/17 17:50 Urine Protein 30 mg/dL (NEGATIVE) 10/14/17 17:50 Urine Glucose (UA) Neg mg/dL (Normal) 10/14/17 17:50 Urine Ketones Trace mg/dL (NEGATIVE) 10/14/17 17:50 Urine Blood Negative (NEGATIVE) 10/14/17 17:50 Urine Nitrate Negative (NEGATIVE) 10/14/17 17:50 Urine Bilirubin Negative (NEGATIVE) 10/14/17 17:50 Urine Urobilinogen 4.0 mg/dL (0.2-1.0) H 10/14/17 17:50 Ur Leukocyte Esterase Neg Srinath/uL (Negative) 10/14/17 17:50 Urine RBC (Auto) < 1 /hpf (0-3) 10/14/17 17:50 Urine Microscopic WBC 4 /hpf (0-5) 10/14/17 17:50 Ur Squamous Epith Cells 1 /hpf (0-5) 10/14/17 17:50 Urine Bacteria Rare (<OCC) 10/14/17 17:50 Hyaline Casts 3-5 /hpf (0-2) H 10/14/17 17:50 Urine Osmolality 534 mosm/kg (300-1000) 10/20/17 18:18 U Random Total Protein 10.0 mg/dL (0.0-12.0) 10/21/17 09:07 Ur Random Sodium 73 mmol/L 10/21/17 09:07 Ur Random Potassium 32.7 mmol/L 10/20/17 18:18 Fluid Source Peritoneal 10/18/17 13:50 Fluid Appearance Clear (CLEAR) 10/18/17 13:50 Fluid WBC 47.0 /mm3 (0.0-300.0) 10/18/17 13:50 Fluid RBC 302.0 /mm3 (0.0-0.0) H 10/18/17 13:50 Fluid Tot Cell Count 100 (0-0) H 10/18/17 13:50 Fluid Neutrophils 61.0 % (0-0) H 10/18/17 13:50 Fluid Lymphocytes 16.0 % (0-0) H 10/18/17 13:50 Fld Monocyte/Macrophag 23 % (0-0) H 10/18/17 13:50 Fluid Albumin 2.1 g/dL 10/18/17 13:50 Fluid Comment Yellow 10/18/17 13:50 Thyroperoxidase Ab <1 IU/mL (<9) 10/20/17 04:20 Hepatitis A IgM Ab Negative (NEGATIVE) 10/19/17 12:00 Hep Bs Antigen Negative (NEGATIVE) 10/19/17 12:00 Hep B Core IgM Ab Negative (NEGATIVE) 10/19/17 12:00 Hepatitis C Antibody Negative (NEGATIVE) 10/19/17 12:00 Blood Type O POSITIVE 10/14/17 18:05 Antibody Screen Negative 10/14/17 18:05 BBK History Checked Patient has bt 10/14/17 18:05 - Hospital Course Hospital Course: nephro, cardio, obgyn, edno, gi, ir cleared by all specialists for dc echo, abd, paracentesis monitor bw and c/s Discharge Exam - Head Exam Head Exam: ATRAUMATIC, NORMAL INSPECTION, NORMOCEPHALIC - Eye Exam Eye Exam: EOMI, Normal appearance, PERRL Pupil Exam: NORMAL ACCOMODATION, PERRL - Respiratory Exam Respiratory Exam: Clear to PA & Lateral, NORMAL BREATHING PATTERN, UNREMARKABLE - Cardiovascular Exam Cardiovascular Exam: REGULAR RHYTHM, RRR, +S1, +S2 - GI/Abdominal Exam GI & Abdominal Exam: Normal Bowel Sounds, Soft, Unremarkable - Extremities Exam Extremities exam: full ROM, normal capillary refill, normal inspection, pedal pulses present - Back Exam Back exam: FULL ROM - Neurological Exam Neurological exam: Alert, CN II-XII Intact, Normal Gait, Oriented x3, Reflexes Normal - Psychiatric Exam Psychiatric exam: Normal Affect, Normal Mood - Skin Skin Exam: Dry, Intact, Normal Color, Warm Discharge Plan - Discharge Medications Prescriptions: Levothyroxine [Synthroid] 75 mcg PO DAILY@0400 #30 tab Multivit/Folic Acid/I [] 1 tab PO DAILY #30 tab Sodium Chloride [Sodium Chloride Tab] 1 gm PO DAILY #10 tab - Follow Up Plan Condition: STABLE Disposition: HOME/ ROUTINE Additional Instructions: pt. cleared for discharge to Home today by pt. instructed to f/u with OB on Wednesday ( has follow up appointment) f/u with CHRISTINA Nascimento in am final dx-hyponatremia, , ivf, ohhs, pos trop, ascites pt doing well. no complaints. nof /c, n/v/d. no dyspnea, palpitations, cp, abd pain cleared by all specialists for dc home. f/u in am, will repeat labs then will set pt up w/ team outpt Referrals: Mary Jane Almeida MD [Medical Doctor] - David Nascimento DNP, [employer] [employer] [Advanced Practice Nurse] -
[2017-10-22 13:28] VITALS: BP 121/72; PULSE 91; RESP 17; TEMP 98; O2SAT 98
--- NOTE | 2017-10-22 17:28 | PN ---
Copied To: Sommer Chawla MD Attending MD: Sommer Chawla MD DATE: 10/22/2017 ENDO FOLLOWUP NOTE LOCATION: In room 408. SUBJECTIVE: This is a 36-year-old female with intrauterine , admitted with abdominal pain and massive ascites and has since then improved clinically and hemodynamically with the recent paracentesis procedure undertaken thereof. She also remains clinically euthyroid and biochemically as early evidence of hypothyroidism as noted thereof. LABORATORY DATA: Her latest chemistry showed the BUN of 14, sodium 128, potassium 3.9, chloride 102, CO2 of 24, glucose 82, and creatinine 0.6. Her liver function studies remained elevated as noted. Her beta-hCG is 473.47, which is increasing. Her latest thyroid studies showed a free T4 of 1.33 and a TSH of 8.29 and a T4 of 12.9. ASSESSMENT AND PLAN: So at this time, we will continue the modified dosing of the levothyroxine given as 75 mcg daily as given. We will titrate incrementally as indicated to optimize metabolic control. She has been advised to repeat her thyroid studies in four to six weeks for the need for dose titration and adjustment thereof. We will follow. Sommer Chawla MD
== END 2017-10-22 15:35 | disposition home or self-care (01) | DRG 920 ==
LOC: H.ER 16:55 → H.ERHOLD 22:37 → H.TEL 10-15 14:10 → OBSVTOIN 10-16 13:45
PROVIDERS: ADMIT Family Medicine; ATTEND Family Medicine
PROC: 0W9G3ZZ Drainage of Peritoneal Cavity, Percutaneous Approach (ICD-10-PCS; principal; 2017-10-18)
DX: N98.1 Hyperstimulation of ovaries (principal); E87.1 Hypo-osmolality and hyponatremia; R18.8 Other ascites; N97.9 Female infertility, unspecified; E06.3 Autoimmune thyroiditis; E03.8 Other specified hypothyroidism; E04.8 Other specified nontoxic goiter; K59.00 Constipation, unspecified; O09.819 Supervision of pregnancy resulting from assisted reproductive technology, unspecified trimester; Z98.890 Other specified postprocedural states

== ENCOUNTER 2017-10-14 17:03 | Emergency (ER) | payer OTHER | END 2017-10-14 22:37 | LOC: H.ER 17:03 | DX: N98.1 Hyperstimulation of ovaries (principal) | CPT/HCPCS: 71045; 71275; 74160; 76700; 76817; 80053; 81003; 81025; 82553; 83605; 83690; 83880; 84484; 84702; 85025; 85610; 85730; 86850; 86900; 93005; 93306; 93970; 96361; 96374; 96375; 99285; J2270; J2405; J7120; Q9967 ==

== ENCOUNTER 2018-03-28 08:08 | Emergency (ER) | payer OTHER ==
[2018-03-28 09:12] VITALS: BMI 25.0
[2018-03-28] MEDS ORDERED: Betamethasone Soluspan 30 mg/5mL Inj Susp IM ONE (09:59)
[2018-03-28] MEDS ORDERED: Lactated Ringer's 1,000 ML IV SCH ×2 (10:00→11:30)
[2018-03-28 10:26] LABS: BASO # 0.1 K/uL (0.0-0.2); BASO % 0.6 % (0.0-2.0); EOS % 0.4 % (0.0-4.0); HEMOGLOBIN 10.6 g/dL (12.0-16.0); LYMPH # 1.4 K/uL (1.0-4.3); LYMPH % 16.6 % (20.0-40.0); MEAN CELL VOLUME 86.9 fl (81.0-99.0); MEAN CORPUSCULAR HGB CONC 33.3 g/dL (33.0-37.0); MEAN PLATELET VOLUME 8.2 fl (7.2-11.7); MONO # 0.4 K/uL (0.0-0.8); NEUT # 6.7 K/uL (1.8-7.0); NEUT % 77.4 % (50.0-75.0); RBC 3.65 Mil/uL (3.80-5.20); RED CELL DISTRIBUTION WIDTH 13.7 % (11.5-14.5); WHITE BLOOD COUNT 8.6 K/uL (4.8-10.8)
[2018-03-28] MEDS ORDERED: Magnesium Sulfate 4 gm/100 ml 4 GM/100 ML BAG IV ONE (11:23)
--- NOTE | 2018-03-28 11:46 | OBHP ---
Datetime: 03/28/2018 11:00 IP Adm Impression: , intrauterine IP Chief Complaint Other: vaginal bleeding IP Admit Plan: Observation/Evaluation Admit Comment, IP Provider: Pt is a 37 yo @ 27.6 wks IVF , hypothyroidism, placenta pr evia with 2 large bleeds this morning. Patient went to the bathroom, and saw multiple blood clots nilson t filled 2 medium pads. No abdominal pain, +FM, no leaking. No other action preciptated the bleeding. Patient called the office, then presented to the hospital. On exam, watery blood was noted from the cervix, cervix looked closed. At bedside Cervix was observed to be 4cm long, TAVARES = 14. BPP = 8/8. FHR = 150 mod joana, +accels, no decels. TOCO = cxtning q 10 mins. Type and screen drawn, CBC, IVF drawn, Beta given. Patient afebrile, does not feel contractions, no uterine tenderness. Discussed with Dr. Jose anne/Dr. Anderson findings and Plan of care. At this point bleeding has trended down tremendously. Pa tient does not appear ruptured. Started the patient on Magnessium for tocolysis and patient to be tra [facility] for observation. Discussed plan of care with patient. All questions answered. Pelvic Type - PN: Adequate Extremities - PN: Normal Abdomen - PN: Normal Back - PN: Normal Breast - PN: Normal Lungs - PN: Normal Heart - PN: Normal Thyroid - PN: Normal Neurologic - PN: Normal HEENT - PN: Normal General - PN: Normal FHR - Baseline A Provider: 150 Membranes, Provider: Intact Contraction Comments Provider: q 10 mins Vital Signs Provider: Reviewed; Within Normal Limits NICHD Variability Prov Fetus A: Moderate 6-25bpm NICHD Accel Fetus A IP Provider: [id number] NICHD Decel Fetus A IP Provider: None Dilatation, Provider: 0 Genitourinary Exam: Abnormal DTRs - PN: Normal
--- NOTE | 2018-03-28 12:24 | US ---
Date of service: 03/28/2018 PROCEDURE: Biophysical profile HISTORY: placenta previa, bleeding, possible PPROM, growth COMPARISON: None TECHNIQUE: Standard protocol for this study/examination. FINDINGS: FINDINGS: Biophysical profile score 8/8 Based on the followin. breathing movements: 2/2 2. Gross body movement: 2/2 3. tone: 2/2 4. Qualitative amniotic fluid index: 2/2 Quantitative amniotic fluid 14.66 cm Cephalic presentation. Calculated cardiac rate 157 beats per minute. Closed cervix 3.1 cm. Placenta previa identified. This is by history unknown finding. IMPRESSION: Biophysical profile score 8/8.
--- NOTE | 2018-03-28 16:01 | OBDCSUM ---
Datetime: 03/28/2018 15:53 Discharged to, Provider: Other Follow up at, Provider: Dr. Anderson Discharge Instructions, Provider: Specific instructions as noted Discharge Diagnosis, Provider: Placenta Previa Disch Activity Restrictions: Nothing in vagina - Irena, tampons, douche Discharge Diagnosis Prov Other: placenta previa bleeding
[2018-03-28 19:06] VITALS: BP 112/71; PULSE 72; RESP 18; TEMP 97.4; O2SAT 100
== END 2018-03-28 13:35 | disposition short-term general hospital (02) ==
LOC: H.EROB2 08:08
DX: O21.0 Mild hyperemesis gravidarum (principal); O44.02 Complete placenta previa NOS or without hemorrhage, second trimester; O99.89 Other specified diseases and conditions complicating pregnancy, childbirth and the puerperium; E03.9 Hypothyroidism, unspecified; Z3A.27 27 weeks gestation of pregnancy
CPT/HCPCS: 76818; 85025; 86850; 86900; 96372; 99284; J0702; J3475; J7120